=== PATIENT | female | born 1940 | race Caucasian/White ===

== ENCOUNTER → 2017-01-15 | Outpatient (CLI) | payer MEDICARE ==
[2017-01-15 10:08] LABS: INR 3.1 (<1.1); Prothrombin Time 30.2 sec (9.0-12.0)
[2017-01-15 10:19] LABS: ALT 27 U/L (9-52); AST 16 U/L (14-36); Alkaline Phosphatase 88 U/L (38-126); Anion Gap 13 mmol/L; Blood Urea Nitrogen 22 mg/dL (7-17); Calcium 9.4 mg/dL (8.4-10.2); Carbon Dioxide 24 mmol/L (22-30); Chloride 106 mmol/L (98-107); Cholesterol 165 mg/dL (<200); Glucose 141 mg/dL (74-99); HDL Cholesterol 48 mg/dL (40-60); Non-African American GFR(MDRD) 51 (>60 ml/min/1.73 sqM); Potassium 4.9 mmol/L (3.5-5.1); Sodium 143 mmol/L (137-145); Total Bilirubin 0.8 mg/dL (0.2-1.3); Triglycerides 119 mg/dL (<150)
== END ==
LOC: LABWHC1 08:37
PROVIDERS: ATTEND Family Medicine
DX: E78.5 Hyperlipidemia, unspecified (principal); I10 Essential (primary) hypertension; E03.9 Hypothyroidism, unspecified; E11.9 Type 2 diabetes mellitus without complications
CPT/HCPCS: 36415; 80053; 80061; 83036; 84439; 84443; 85610

== ENCOUNTER → 2017-06-25 | Outpatient (CLI) | payer MEDICARE | END | disposition home or self-care (01) | LOC: MMGSC 12:17 | PROVIDERS: ATTEND Family Medicine | DX: N39.0 Urinary tract infection, site not specified (principal) | CPT/HCPCS: 87077; 87086; 87186 ==

== ENCOUNTER → 2017-07-16 | Outpatient (CLI) | payer MEDICARE ==
--- NOTE | 2017-07-18 09:02 | MM ---
Reason for exam: screening (asymptomatic). Last mammogram was performed 1 year and 2 months ago. History: Patient is postmenopausal. Physical Findings: A clinical breast exam by your physician is recommended on an annual basis and results should be correlated with mammographic findings. MG 3D Screening Mammo W/Cad Bilateral CC and MLO view(s) were taken. Prior study comparison: May 01, 2016, bilateral MG screening mammo w CAD. October 25, 2014, bilateral MG screening mammo w CAD. The breast tissue is almost entirely fat. No significant changes when compared with prior studies. ASSESSMENT: Negative, BI-RAD 1 RECOMMENDATION: Routine screening mammogram of both breasts in 1 year.
== END | disposition home or self-care (01) ==
LOC: RADMAMWWP 14:29
PROVIDERS: ATTEND Family Medicine
DX: Z12.31 Encounter for screening mammogram for malignant neoplasm of breast (principal)
CPT/HCPCS: 77063; G0202

== ENCOUNTER → 2017-10-31 | Outpatient (CLI) | payer MEDICARE | END | disposition home or self-care (01) | LOC: MMGSC 09:44 | PROVIDERS: ATTEND Family Medicine | DX: R31.9 Hematuria, unspecified (principal) | CPT/HCPCS: 87086 ==

== ENCOUNTER → 2018-01-14 | Outpatient (CLI) | payer MEDICARE ==
[2018-01-14 10:23] LABS: HCT 35.9 % (34.0-46.0); HGB 12.6 gm/dL (11.4-16.0); MCH 31.9 pg (25.0-35.0); MCHC 35.2 g/dL (31.0-37.0); MCV 90.7 fL (80.0-100.0); Mean Platelet Volume 6.6; Platelet Count 238 k/uL (150-450); RBC 3.95 m/uL (3.80-5.40); RDW 12.9 % (11.5-15.5)
[2018-01-14 10:30] LABS: Calcium 9.3 mg/dL (8.4-10.2); Potassium 4.9 mmol/L (3.5-5.1); Total Bilirubin 0.5 mg/dL (0.2-1.3); Total Protein 6.6 g/dL (6.3-8.2)
[2018-01-14 10:45] LABS: T4, Free (Free Thyroxine) 1.04 ng/dL (0.78-2.19)
[2018-01-14 19:43] LABS: Hemoglobin A1C 6.6 % (4.0-6.0)
== END | disposition home or self-care (01) ==
LOC: LABWHC1 09:09
PROVIDERS: ATTEND Family Medicine
DX: Z00.00 Encounter for general adult medical examination without abnormal findings (principal); E11.9 Type 2 diabetes mellitus without complications; R79.89 Other specified abnormal findings of blood chemistry
CPT/HCPCS: 36415; 80053; 80061; 83036; 84439; 84443; 85027

== ENCOUNTER → 2018-08-08 | Outpatient (CLI) | payer MEDICARE ==
[2018-08-08 12:34] LABS: Albumin 3.7 g/dL (3.5-5.0); Calcium 9.1 mg/dL (8.4-10.2); Potassium 4.8 mmol/L (3.5-5.1); Total Bilirubin 0.5 mg/dL (0.2-1.3); Total Protein 6.5 g/dL (6.3-8.2)
[2018-08-08 12:50] LABS: T4, Free (Free Thyroxine) 0.89 ng/dL (0.78-2.19)
[2018-08-08 18:37] LABS: Hemoglobin A1C 6.1 % (4.0-6.0)
== END ==
LOC: LABWHC1 08:24
PROVIDERS: ATTEND Family Medicine
DX: I10 Essential (primary) hypertension (principal); E11.9 Type 2 diabetes mellitus without complications; Z86.718 Personal history of other venous thrombosis and embolism
CPT/HCPCS: 36415; 80053; 80061; 82043; 82570; 83036; 84439; 84443

== ENCOUNTER → 2018-12-11 | Outpatient (CLI) | payer MEDICARE ==
--- NOTE | 2018-12-11 12:07 | XR ---
EXAMINATION TYPE: XR KUB DATE OF EXAM: 12/11/2018 HISTORY: Pain Comparison: None.Single KUB is submitted for interpretation. Findings: Right renal calculi: None Visualized. Right ureteral calculi: None Visualized. Left renal calculi: None Visualized. Left ureteral calculi: None Visualized. Pelvic calcifications: None Visualized. Bowel gas pattern is unremarkable. No free air. No mass effects. IMPRESSION: 1. No calculi noted.
== END | disposition home or self-care (01) ==
LOC: RADXRMAIN 11:14
PROVIDERS: ATTEND Urology
DX: N20.0 Calculus of kidney (principal)
CPT/HCPCS: 74018

== ENCOUNTER → 2019-03-05 | Outpatient (CLI) | payer MEDICARE ==
[2019-03-05 16:28] LABS: Albumin 4.3 g/dL (3.80-4.90); Albumin/Globulin Ratio 2.53 (1.60-3.17); Anion Gap 9.7 mmol/L (4.00-12.00); Calcium 9.2 mg/dL (8.7-10.3); Carbon Dioxide 25.3 mmol/L (21.6-31.8); Globulin 1.7 g/dL (1.6-3.3); LDL Cholesterol,Calculated 96.2 mg/dL (0.0-131.0); Potassium 4.8 mmol/L (3.5-5.5); Total Bilirubin 0.5 mg/dL (0.2-1.2); VLDL Calculation 26.8 mg/dL (5.00-40.00)
[2019-03-05 18:43] LABS: Hemoglobin A1C 6.3 % (4.0-6.0)
== END | disposition home or self-care (01) ==
LOC: LABWHC1 08:37
PROVIDERS: ATTEND Family Medicine
DX: E03.9 Hypothyroidism, unspecified (principal); I10 Essential (primary) hypertension; E78.00 Pure hypercholesterolemia, unspecified; E11.9 Type 2 diabetes mellitus without complications
CPT/HCPCS: 36415; 80053; 80061; 83036; 84439; 84443

== ENCOUNTER → 2019-09-24 | Outpatient (CLI) | payer MEDICARE ==
[2019-09-24 11:03] LABS: T4, Free (Free Thyroxine) 1.1 ng/dL (0.80-1.80)
[2019-09-24 11:42] LABS: African American GFR (CKD) 56.1 (60.0-200.0); Albumin 4.2 g/dL (3.80-4.90); Albumin/Globulin Ratio 2.21 (1.60-3.17); BUN/Creat Ratio 26.36 Ratio (12.00-20.00); Calcium 9.2 mg/dL (8.7-10.3); Chol/HDL Ratio 3.25; Globulin 1.9 g/dL (1.6-3.3); LDL Cholesterol,Calculated 74.4 mg/dL (0.0-131.0); Non-African American GFR(CKD) 48.4 (60.0-200.0); Potassium 4.5 mmol/L (3.5-5.5); Total Bilirubin 0.6 mg/dL (0.3-1.2); Total Protein 6.1 g/dL (6.2-8.2); VLDL Calculation 24.6 mg/dL (5.00-40.00)
== END | disposition home or self-care (01) ==
LOC: LABWHC1 06:44
PROVIDERS: ATTEND Family Medicine
DX: E11.9 Type 2 diabetes mellitus without complications (principal); E78.00 Pure hypercholesterolemia, unspecified; E03.9 Hypothyroidism, unspecified
CPT/HCPCS: 36415; 80053; 80061; 82043; 82570; 83036; 84439; 84443

== ENCOUNTER → 2019-11-27 | Outpatient (CLI) | payer MEDICARE ==
--- NOTE | 2019-11-30 09:37 | MM ---
Reason for exam: screening (asymptomatic). Last mammogram was performed 2 years and 4 months ago. History: Patient is postmenopausal. Physical Findings: A clinical breast exam by your physician is recommended on an annual basis and results should be correlated with mammographic findings. MG 3D Screening Mammo W/Cad Bilateral CC and MLO view(s) were taken. Prior study comparison: July 16, 2017, bilateral MG 3d screening mammo w/cad. May 01, 2016, bilateral MG screening mammo w CAD. There are scattered fibroglandular densities. No suspicious abnormality. No significant changes when compared with prior studies. ASSESSMENT: Negative, BI-RAD 1 RECOMMENDATION: Routine screening mammogram of both breasts in 1 year.
== END | disposition home or self-care (01) ==
LOC: RADMAMWWP 11:50
PROVIDERS: ATTEND Family Medicine
DX: Z12.31 Encounter for screening mammogram for malignant neoplasm of breast (principal)
CPT/HCPCS: 77063; 77067

== ENCOUNTER → 2020-05-10 | Outpatient (CLI) | payer MEDICARE ==
--- NOTE | 2020-05-10 08:54 | US ---
EXAMINATION TYPE: US kidneys/renal and bladder DATE OF EXAM: 05/10/2020 COMPARISON: CT 2012, US 2011 CLINICAL HISTORY: N18.3 Chronic Kidney Disease Stage 3. CKD stage III EXAM MEASUREMENTS: Right Kidney: 10.9 x 5.4 x 4.9 cm Left Kidney: 12.3 x 4.5 x 4.4 cm Difficult and limited study due to patient body habitus Right Kidney: cortical thinning, irregular contour, no hydronephrosis or masses seen Left Kidney: cortical thinning, irregular contour, 2.1cm anechoic area mid pole that appears to exten d into calyx, possible mild hydronephrosis Bladder: not fully distended, appears wnl as seen Bilateral Jets seen: no IMPRESSION: 1. Diffuse cortical thinning is evident compatible with some chronic renal failure. 2. Focal anechoic area inferior pole left kidney. Peripelvic cyst, some focal hydronephrosis or hetal ceal dilatation could be considered.
[2020-05-10 10:07] LABS: Appearance,Urine Clear (Clear); Bilirubin,Urine Negative (Negative); Blood,Urine Negative (Negative); Color,Urine Light Yellow; Glucose,Urine (UA) Negative (Negative); Ketones,Urine Negative (Negative); Leukocyte Esterase,Urine Negative (Negative); Nitrite,Urine Negative (Negative); Protein,Urine Negative (Negative); Specific Gravity,Urine 1.003 (1.001-1.035); Urobilinogen,Urine <2.0 mg/dL (<2.0)
[2020-05-10 10:34] LABS: HCT 36.8 % (34.0-46.0); HGB 11.7 gm/dL (11.4-16.0); MCH 30.1 pg (25.0-35.0); MCHC 31.8 g/dL (31.0-37.0); MCV 94.9 fL (80.0-100.0); Mean Platelet Volume 7.4; Platelet Count 203 k/uL (150-450); RBC 3.88 m/uL (3.80-5.40); RDW 13.5 % (11.5-15.5); WBC 4.1 k/uL (3.8-10.6)
[2020-05-10 11:37] LABS: Albumin 3.6 g/dL (3.5-5.0); Calcium 8.8 mg/dL (8.4-10.2); Magnesium 1.8 mg/dL (1.6-2.3); Phosphorus 3.5 mg/dL (2.5-4.5); Potassium 4.9 mmol/L (3.5-5.1); Total Bilirubin 0.5 mg/dL (0.2-1.3); Total Protein 6.1 g/dL (6.3-8.2); Uric Acid 4.6 mg/dL (3.7-7.4)
[2020-05-10 16:59] LABS: % Iron Saturation 36.4 (12.00-45.00)
[2020-05-10 17:19] LABS: Ferritin 540.9 ng/mL (10.0-291.0)
[2020-05-10 18:12] LABS: Microalbumin Creatinine Ratio <30 mg/g Creat (0-30); Urine Creatinine 12.6 mg/dL
== END | disposition home or self-care (01) ==
LOC: RADUSWWP 08:06
PROVIDERS: ATTEND Internal Medicine
DX: N28.1 Cyst of kidney, acquired (principal); N18.3 Chronic kidney disease, stage 3 (moderate); D63.1 Anemia in chronic kidney disease; N39.0 Urinary tract infection, site not specified; R80.9 Proteinuria, unspecified; N25.81 Secondary hyperparathyroidism of renal origin; E55.9 Vitamin D deficiency, unspecified; M10.9 Gout, unspecified
CPT/HCPCS: 76770; 80053; 81003; 82043; 82306; 82570; 82728; 83540; 83550; 83735; 83970; 84100; 84550; 85027

== ENCOUNTER → 2020-06-14 | Outpatient (CLI) | payer MEDICARE ==
--- NOTE | 2020-06-15 07:17 | CT ---
EXAMINATION TYPE: CT urogram wo/w con DATE OF EXAM: 06/14/2020 COMPARISON: 06/07/2012 INDICATION: Lt flank pain, hydronephrosis DLP: 3230 mGycm, Automated exposure control for dose reduction was used. CONTRAST: 80 mL of Isovue 300. Study performed without Oral Contrast TECHNIQUE: Axial images were obtained from above the diaphragm to the pubic rami in the axial plane a t 5 mm thick sections. Reconstructed images are reviewed on the computer in the coronal plane. FINDINGS: Limited CT sections are obtained the lung bases. The lung bases are clear. Coronary artery calcific ation is noted. CT ABDOMEN: Liver: Normal Spleen: Normal Pancreas: Normal Adrenal glands: The adrenal glands are normal. Gallbladder: Surgically absent Kidneys: No masses are evident. Some cortical thinning appears to be present. No hydronephrosis is pr esent. No cysts are present. Delayed images were obtained through the kidneys, which remain unrema rkable. Three-D reconstructed images performed on a separate computer by the technologist are reviewe d. Renal calyces and infundibulum and renal pelves appear normal. There is delayed contrast into the right ureter which is unopacified during this exam. Noncontrast images of the right ureter appear no rmal. Left ureter appears normal. Aorta: Vascular calcification is within the aorta. Inferior vena cava: There is a filter within the inferior vena cava. CT PELVIS: Loops of bowel within the abdomen and pelvis are normal. Study is performed without oral contrast limiting bowel evaluation. Scattered diverticuli within the sigmoid colon. Appendix: Not identified. No dilated tubular structure inflammatory changes are evident. Urinary bladder: Normal. Genitourinary structures: Uterus is absent. Adnexal regions are clear. Osseous structures: No suspicious lytic or sclerotic lesions. IMPRESSIONS: 1. No acute suspicious changes CT urogram. Exam has limitation with nondrainage of contrast into the right ureter during the exam. Contrast excretion through the kidneys however is symmetrical. 2. Diverticulosis without acute diverticulitis.
== END | disposition home or self-care (01) ==
LOC: RADCTMAIN 17:10
PROVIDERS: ATTEND Urology
DX: K57.90 Diverticulosis of intestine, part unspecified, without perforation or abscess without bleeding (principal); N13.30 Unspecified hydronephrosis
CPT/HCPCS: 82565; 84520; 74178; 36415; 74400; Q9967

== ENCOUNTER → 2020-06-21 | Outpatient (CLI) | payer MEDICARE ==
[2020-06-21 16:29] LABS: INR 3.57 (0.90-1.11); Prothrombin Time 36.4 sec (9.9-11.9)
[2020-06-21 18:16] LABS: African American GFR (CKD) 55.7 (60.0-200.0); Albumin 4.2 g/dL (3.80-4.90); BUN/Creat Ratio 23.64 Ratio (12.00-20.00); Calcium 9.1 mg/dL (8.7-10.3); Chol/HDL Ratio 3.89; Globulin 2.1 g/dL (1.6-3.3); LDL Cholesterol,Calculated 96.8 mg/dL (0.0-131.0); Potassium 4.8 mmol/L (3.5-5.5); Total Bilirubin 0.6 mg/dL (0.2-1.2); Total Protein 6.3 g/dL (6.2-8.2); VLDL Calculation 30.2 mg/dL (5.00-40.00)
[2020-06-21 20:21] LABS: Hemoglobin A1C 5.8 % (4.0-6.0)
[2020-06-22 01:50] LABS: Urine Creatinine 91.3 mg/dL
== END | disposition home or self-care (01) ==
LOC: LABWHC1 09:01
PROVIDERS: ATTEND Family Medicine
DX: E78.5 Hyperlipidemia, unspecified (principal); E11.9 Type 2 diabetes mellitus without complications; Z79.01 Long term (current) use of anticoagulants
CPT/HCPCS: 36415; 80053; 80061; 82043; 82570; 83036; 85610

== ENCOUNTER → 2020-10-06 | Outpatient (CLI) | payer MEDICARE ==
[2020-10-06 13:34] LABS: Basophils % (A) 0 %; Eosinophils # (A) 0.1 k/uL (0-0.7); Eosinophils % (A) 2 %; HCT 31.3 % (34.0-46.0); HGB 10.4 gm/dL (11.4-16.0); Lymphocytes % (A) 19 %; MCH 30.9 pg (25.0-35.0); MCHC 33.1 g/dL (31.0-37.0); MCV 93.2 fL (80.0-100.0); Mean Platelet Volume 7.1; Monocytes # (A) 0.3 k/uL (0-1.0); Monocytes % (A) 7 %; Neutrophils # (A) 3.7 k/uL (1.3-7.7); Neutrophils % (A) 70 %; Platelet Count 236 k/uL (150-450); RBC 3.36 m/uL (3.80-5.40); WBC 5.3 k/uL (3.8-10.6)
[2020-10-06 19:49] LABS: INR 4.74 (0.90-1.11); Prothrombin Time 45.6 sec (9.9-11.9)
== END | disposition home or self-care (01) ==
LOC: LABWHC1 12:20
PROVIDERS: ATTEND Family Medicine
DX: R31.9 Hematuria, unspecified (principal); K92.1 Melena
CPT/HCPCS: 36415; 85025; 85610

== ENCOUNTER → 2020-10-10 | Outpatient (CLI) | payer MEDICARE ==
[2020-10-10 11:23] LABS: Basophils % (A) 0 %; Eosinophils # (A) 0.2 k/uL (0-0.7); Eosinophils % (A) 3 %; HCT 30.9 % (34.0-46.0); HGB 10.4 gm/dL (11.4-16.0); Lymphocytes # (A) 1.1 k/uL (1.0-4.8); Lymphocytes % (A) 20 %; MCH 31.5 pg (25.0-35.0); MCHC 33.8 g/dL (31.0-37.0); MCV 93.2 fL (80.0-100.0); Mean Platelet Volume 7.2; Monocytes # (A) 0.4 k/uL (0-1.0); Monocytes % (A) 7 %; Neutrophils # (A) 3.5 k/uL (1.3-7.7); Neutrophils % (A) 68 %; Platelet Count 275 k/uL (150-450); RBC 3.31 m/uL (3.80-5.40); RDW 13.5 % (11.5-15.5); WBC 5.2 k/uL (3.8-10.6)
== END | disposition home or self-care (01) ==
LOC: LABWHC1 09:23
PROVIDERS: ATTEND Family Medicine
DX: R31.9 Hematuria, unspecified (principal); K92.1 Melena
CPT/HCPCS: 36415; 85025

== ENCOUNTER → 2020-10-14 | Outpatient (CLI) | payer MEDICARE ==
[2020-10-14 10:09] LABS: HCT 30.5 % (34.0-46.0); HGB 10.2 gm/dL (11.4-16.0); MCH 31.5 pg (25.0-35.0); MCHC 33.6 g/dL (31.0-37.0); MCV 93.9 fL (80.0-100.0); Mean Platelet Volume 7.2; Platelet Count 282 k/uL (150-450); RBC 3.25 m/uL (3.80-5.40); RDW 13.8 % (11.5-15.5); WBC 4.6 k/uL (3.8-10.6)
[2020-10-14 16:07] LABS: INR 1.87 (0.90-1.11); Prothrombin Time 19.3 sec (9.9-11.9)
== END | disposition home or self-care (01) ==
LOC: LABWHC1 09:29
PROVIDERS: ATTEND Family Medicine
DX: K92.1 Melena (principal); Z79.01 Long term (current) use of anticoagulants
CPT/HCPCS: 36415; 85027; 85610

== ENCOUNTER → 2020-11-02 | Outpatient (CLI) | payer MEDICARE ==
[2020-11-02 20:45] LABS: INR 4.92 (0.90-1.11); Prothrombin Time 47.2 sec (9.9-11.9)
== END | disposition home or self-care (01) ==
LOC: LABWHC1 12:52
PROVIDERS: ATTEND Family Medicine
DX: Z51.81 Encounter for therapeutic drug level monitoring (principal); Z79.01 Long term (current) use of anticoagulants
CPT/HCPCS: 36415; 85610

== ENCOUNTER → 2020-11-09 | Outpatient (CLI) | payer MEDICARE ==
[2020-11-09 18:29] LABS: INR 1.78 (0.90-1.11); Prothrombin Time 18.4 sec (9.9-11.9)
== END | disposition home or self-care (01) ==
LOC: LABWHC1 08:58
PROVIDERS: ATTEND Family Medicine
DX: Z51.81 Encounter for therapeutic drug level monitoring (principal); Z79.01 Long term (current) use of anticoagulants
CPT/HCPCS: 36415; 85610

== ENCOUNTER 2021-04-27 14:31 | Observation (INO) | payer MEDICARE ==
[2021-04-27] MEDS ORDERED: RX INFO: IV CONTRAST WAS GIVEN 1 EACH MISC MISCELLANE PRN (15:34)
[2021-04-27] MEDS ORDERED: ONDANSETRON 4 MG/2 ML VIAL IVP STA (15:34)
[2021-04-27] MEDS ORDERED: SODIUM CHLORIDE 0.9% 500 ML 500 ML IV STA (15:34)
[2021-04-27] MEDS ORDERED: MORPHINE SULFATE 4 MG/ML SYRINGE IVP STA (15:35)
--- NOTE | 2021-04-27 15:38 | ED ---
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 The patient states that she was in [place] this morning around 9 AM. She states that she was on a deck and she had a coffee in her hand. She went to step down off of the deck and missed her step and fell. States the deck was approximately 1 foot off the ground. She states that she landed onto her right side. She denies any head injury or loss of consciousness. She states that since that time she's had pain in the right side of her abdomen and right back area. She states that the pain is made worse with certain movements and breathing. She denies any hematuria or dysuria. She states that she has a little bit of nausea. No headache. No neck pain. She states she had no injuries in her extremities. She was able to ambulate afterwards however had some pain. Her family was able to drive her back home and she decided to come emergency department for evaluation. Patient otherwise denies any other points. - Related Data Home Medications Medication Instructions Recorded Confirmed ALPRAZolam [Xanax] 0.25 mg PO DAILY PRN 04/27/21 04/27/21 Acetaminophen Tab [Tylenol Tab] 500 mg PO Q6H PRN 04/27/21 04/27/21 Ascorbic Acid [Vitamin C] 1,000 mg PO DAILY 04/27/21 04/27/21 Atorvastatin Calcium [Lipitor] 10 mg PO HS 04/27/21 04/27/21 Cholecalciferol (Vitamin D3) 375 mcg PO DAILY 04/27/21 04/27/21 [Vitamin D3 (5000 Iu)] Insulin Glargine,Hum.rec.anlog 20 unit SQ DAILY 04/27/21 04/27/21 [Lantus Solostar] Insulin Glargine,Hum.rec.anlog 55 unit SQ HS 04/27/21 04/27/21 [Lantus Solostar] Levothyroxine Sodium [Synthroid] 75 mcg PO DAILY 04/27/21 04/27/21 Losartan Potassium 100 mg PO DAILY 04/27/21 04/27/21 Meclizine [Antivert] 25 mg PO TID PRN 04/27/21 04/27/21 Sertraline [Zoloft] 50 mg PO DAILY 04/27/21 04/27/21 Warfarin Sodium [Jantoven] 2.5 mg PO THFRSA@209904/27/21 04/27/21 Warfarin Sodium [Jantoven] 5 mg PO SUMOTUWE@209904/27/21 04/27/21 Allergies Allergy/AdvReac Type Severity Reaction Status Date / Time codeine Allergy Hallucinati Verified 04/27/21 17:18 ons Review of Systems ROS Statement: Those systems with pertinent positive or pertinent negative responses have been documented in the HPI. ROS Other: All systems not noted in ROS Statement are negative. Past Medical History Past Medical History: Hyperlipidemia Additional Past Medical History / Comment(s): factor 5 History of Any Multi-Drug Resistant Organisms: None Reported Past Surgical History: Back Surgery, Orthopedic Surgery Additional Past Surgical History / Comment(s): sadaf shulder ,sadaf knee, femur Past Psychological History: No Psychological Hx Reported Smoking Status: Never smoker Past Alcohol Use History: None Reported Past Drug Use History: None Reported General Exam - General Exam Comments Initial Comments: Constitutional: Awake alert uncomfortable Head: Normocephalic atraumatic Eyes: no conjunctival injection No scleral icterus EOMI, pupils are 4 mm and reactive bilaterally Neck: No JVD Supple, no midline tenderness Heart: Regular rate rhythm normal S1-S2 no murmurs Lungs: Clear to auscultation bilaterally No wheezing No rales, no tenderness to palpation the chest wall Abdomen: Soft nondistended and has some tenderness in the right upper quadrant and right flank area, no ecchymosis Extremities: Non edematous DP pulses intact Radial pulses intact, the patient is no tenderness in the extremities. She has no tenderness in the T and L-spine. She does have some right-sided posterior rib discomfort. No overlying ecchymosis Neuro: A&Ox3 No focal neurologic deficits Psych: Appropriate mood and affect Limitations: no limitations Course Vital Signs 04/27/21 15:19 Temperature 97.6 F Pulse Rate 75 Respiratory 22 Rate Blood Pressure 138/63 O2 Sat by Pulse 99 Oximetry - Reevaluation(s) Reevaluation #1: EKG is showing normal sinus rhythm with a rate of 72. No abnormal ST segment changes or T-wave inversions. QTC is 435. Other intervals normal. No ectopy. 04/27/21 16:56 Medical Decision Making - Medical Decision Making Is a 72-year-old female presents emergency room after a fall this morning. The patient had quite a bit of pain on the right flank region. The patient was evaluated according to ATLS. She had CT scans of the head neck chest abdomen pelvis. She was noted to have for right-sided rib fractures. The patient was given a morphine on arrival with improvement in her symptoms however was having some significant amount of pain with inspiration. Due to the number of rib fractures, patient's age I do feel that is prudent to monitor the patient and the hospital setting to get her pain under control so that she does not develop any pulmonary issues such as pneumonia. I spoke with Dr. Oconnell who accepts the admission. - Lab Data Result diagrams: 04/27/21 17:13 04/27/21 16:10 Lab Results 04/27/21 04/27/21 04/27/21 Range/Units 15:47 16:10 16:10 WBC (3.8-10.6) k/uL RBC (3.80-5.40) m/uL Hgb (11.4-16.0) gm/dL Hct (34.0-46.0) % MCV (80.0-100.0) fL MCH (25.0-35.0) pg MCHC (31.0-37.0) g/dL RDW (11.5-15.5) % Plt Count (150-450) k/uL MPV Neutrophils % % Lymphocytes % % Monocytes % % Eosinophils % % Basophils % % Neutrophils # (1.3-7.7) k/uL Lymphocytes # (1.0-4.8) k/uL Monocytes # (0-1.0) k/uL Eosinophils # (0-0.7) k/uL Basophils # (0-0.2) k/uL PT 31.8 H (9.0-12.0) sec INR 3.3 H (<1.2) APTT 35.1 H (22.0-30.0) sec Sodium 138 (137-145) mmol/L Potassium 4.7 (3.5-5.1) mmol/L Chloride 107 (98-107) mmol/L Carbon Dioxide 22 (22-30) mmol/L Anion Gap 9 mmol/L BUN 32 H (7-17) mg/dL Creatinine 0.96 (0.52-1.04) mg/dL Est GFR (CKD-EPI)AfAm 66 (>60 ml/min/1.73 sqM) Est GFR (CKD-EPI)NonAf 57 (>60 ml/min/1.73 sqM) Glucose 146 H (74-99) mg/dL POC Glucose (mg/dL) 161 H (75-99) mg/dL POC Glu Mate Fourth ID Karen Castellano Calcium 9.0 (8.4-10.2) mg/dL Total Bilirubin 0.3 (0.2-1.3) mg/dL AST 41 H (14-36) U/L ALT 31 (4-34) U/L Alkaline Phosphatase 91 (38-126) U/L Troponin I (0.000-0.034) ng/mL Total Protein 6.1 L (6.3-8.2) g/dL Albumin 3.6 (3.5-5.0) g/dL Serum Alcohol <10 mg/dL Blood Type Blood Type Recheck Bld Type Recheck Status Antibody Screen Spec Expiration Date 04/27/21 04/27/21 04/27/21 Range/Units 16:10 16:15 17:13 WBC 9.3 (3.8-10.6) k/uL RBC 3.82 (3.80-5.40) m/uL Hgb 12.3 (11.4-16.0) gm/dL Hct 34.9 (34.0-46.0) % MCV 91.4 (80.0-100.0) fL MCH 32.1 (25.0-35.0) pg MCHC 35.2 (31.0-37.0) g/dL RDW 13.4 (11.5-15.5) % Plt Count 226 (150-450) k/uL MPV 7.7 Neutrophils % 87 % Lymphocytes % 7 % Monocytes % 5 % Eosinophils % 0 % Basophils % 0 % Neutrophils # 8.1 H (1.3-7.7) k/uL Lymphocytes # 0.6 L (1.0-4.8) k/uL Monocytes # 0.4 (0-1.0) k/uL Eosinophils # 0.0 (0-0.7) k/uL Basophils # 0.0 (0-0.2) k/uL PT (9.0-12.0) sec INR (<1.2) APTT (22.0-30.0) sec Sodium (137-145) mmol/L Potassium (3.5-5.1) mmol/L Chloride (98-107) mmol/L Carbon Dioxide (22-30) mmol/L Anion Gap mmol/L BUN (7-17) mg/dL Creatinine (0.52-1.04) mg/dL Est GFR (CKD-EPI)AfAm (>60 ml/min/1.73 sqM) Est GFR (CKD-EPI)NonAf (>60 ml/min/1.73 sqM) Glucose (74-99) mg/dL POC Glucose (mg/dL) (75-99) mg/dL POC Glu Mate Fourth ID Calcium (8.4-10.2) mg/dL Total Bilirubin (0.2-1.3) mg/dL AST (14-36) U/L ALT (4-34) U/L Alkaline Phosphatase (38-126) U/L Troponin I <0.012 (0.000-0.034) ng/mL Total Protein (6.3-8.2) g/dL Albumin (3.5-5.0) g/dL Serum Alcohol mg/dL Blood Type O Positive Blood Type Recheck O Pos Bld Type Recheck Status No Antibody Screen NEGATIVE Spec Expiration Date 04/30/20212309 Disposition Clinical Impression: Ribs, multiple fractures Disposition: ADMITTED IP TO THIS HOSP Condition: Stable Referrals: Amanda Montgomery MD [Primary Care Provider] - 1-2 days
--- NOTE | 2021-04-27 15:47 | XR ---
EXAMINATION TYPE: XR chest 1V portable DATE OF EXAM: 04/27/2021 COMPARISON: 05/19/2012 HISTORY: Trauma TECHNIQUE: Single frontal view of the chest is obtained. FINDINGS: There is haziness of the left hemidiaphragm which is likely due to underpenetration from body habitus . No definite large airspace disease. Cardiac silhouette is unchanged in size. Bilateral shoulder hardware is incompletely included. IMPRESSION: No acute process.
--- NOTE | 2021-04-27 15:48 | XR ---
EXAMINATION TYPE: XR pelvis AP view DATE OF EXAM: 04/27/2021 CLINICAL HISTORY: Trauma TECHNIQUE: A single AP view of the pelvis is obtained. COMPARISON: None. FINDINGS: There is an intramedullary nail in the right femur. Degenerative changes are seen in the bones. Vascu lar stent is present. IMPRESSION: There is no acute fracture or dislocation in the pelvis. Chronic changes, as described.
[2021-04-27 15:49] LABS: Glucose,Whole Blood 161 mg/dL (75-99)
--- NOTE | 2021-04-27 16:30 | CT ---
EXAMINATION TYPE: CT brain tyler beavers DATE OF EXAM: 04/27/2021 COMPARISON: HISTORY: Fall with injury today. CT DLP: 4590.1 mGycm Automated exposure control for dose reduction was used. TECHNIQUE: CT scan of the head and cervical spine are performed without contrast. FINDINGS: There is no acute intracranial hemorrhage, mass effect, or midline shift identified. The ventricles and sulci are within normal limits in size. There are cerebral vascular calcifications an d cortical atrophy. The globes are intact and the visualized sinuses are clear. Some artifact noted at these base of the cervical spine Cervical spine is visualized in its entirety from C1 through upper thoracic levels and demonstrates near anatomic alignment without evidence of acute fracture or dislocation. There is multilevel spondy losis. Loss of disc height is greatest at C5-6 and C6-7, C7-T1, there is multilevel foraminal encroac hment due to uncovertebral joint hypertrophy. Prevertebral soft tissue appears within normal limits. The C1-C2 articulation is unremarkable. There is a spinal curvature. IMPRESSION: 1. There is no acute fracture or dislocation evident in the cervical spine. 2. No acute intracranial hemorrhage, mass effect, or midline shift is seen.
--- NOTE | 2021-04-27 16:32 | CT ---
EXAMINATION TYPE: CT ChestAbdPelvis w con DATE OF EXAM: 04/27/2021 COMPARISON: Abdomen pelvis CT 06/14/2020 HISTORY: 80-year-old female pain after Fall and injury today. TECHNIQUE: Contiguous axial scanning of the chest, abdomen, and pelvis performed with IV Contrast, pa tient injected with 100 mL of Isovue 300. Delayed images through the kidneys were obtained. Coronal/s agittal reconstructions performed. CT DLP: 4590.1 mGycm Automated exposure control for dose reduction was used. FINDINGS: CHEST: Heart is borderline enlarged without pericardial effusion. Aorta normal caliber with conventional branching anatomy. No evidence for aortic dissection or medias tinal hematoma. No thoracic lymphadenopathy by CT size criteria. Patchy dependent atelectasis is noted. No consolidation, pleural effusion, or pneumothorax. Bilateral first shoulder arthroplasties. Nondisplaced and minimally offset fractures of the right lat eral fourth and fifth, seventh and eighth ribs. There is additional soft tissue thickening along the right anterolateral thoracoabdominal wall muscul ature, refer to axial image 55 through 60 suggesting muscular bruising and swelling. ABDOMEN: No discrete focal liver lesion underlying the abdominal wall muscle abnormality. Portal venous system is patent. No biliary ductal dilatation. Cholecystectomy clips. Adrenal glands, spleen, and pancreas show no gross abnormality. Lobulated bilateral kidneys with thin cortices, unchanged from prior. No dilated small bowel, free fluid, or free air. No mesenteric or retroperitoneal lymphadenopathy. Mild to moderate stool burden. Left-sided colonic diverticulosis, greatest in the sigmoid colon. No p ericolonic inflammatory change An IVC filter is present. PELVIS: Right common femoral vein vascular stent. Bladder urine distended. Uterus surgically absent. Right ov cari not seen. Left ovary is visualized. No abnormal fluid collection the pelvis or pelvic lymphadenop athy. BONES: Moderate degenerative change of the hips. Intramedullary nail within the visualized proximal right fe mur. Degenerative change of both SI joints. Post surgical change of L4-L5 posterior and interbody fus ion with a fixed grade 2 anterolisthesis. Vertebral body heights are preserved. IMPRESSION: 1. NONDISPLACED TO MINIMALLY DISPLACED FRACTURES OF THE RIGHT LATERAL FOURTH, FIFTH, SEVENTH, AND EIG HTH RIBS. SOME UNDERLYING ATELECTASIS ON THE RIGHT WITHOUT PNEUMOTHORAX OR PLEURAL EFFUSION. 2. ASYMMETRIC THICKENING OF THE RIGHT ANTEROLATERAL MUSCULAR WALL OF THE THORACOABDOMINAL JUNCTION EX TENDING DOWN INTO THE RIGHT UPPER QUADRANT. FINDINGS SUGGEST MUSCULAR BRUISING AND SWELLING.
[2021-04-27 16:45] LABS: ALT 31 U/L (4-34); AST 41 U/L (14-36); African American GFR (CKD) 66 (>60 ml/min/1.73 sqM); Albumin 3.6 g/dL (3.5-5.0); Alcohol <10 mg/dL; Alkaline Phosphatase 91 U/L (38-126); Anion Gap 9 mmol/L; Blood Urea Nitrogen 32 mg/dL (7-17); Carbon Dioxide 22 mmol/L (22-30); Chloride 107 mmol/L (98-107); Glucose 146 mg/dL (74-99); Non-African American GFR(CKD) 57 (>60 ml/min/1.73 sqM); Potassium 4.7 mmol/L (3.5-5.1); Sodium 138 mmol/L (137-145); Total Bilirubin 0.3 mg/dL (0.2-1.3); Total Protein 6.1 g/dL (6.3-8.2)
[2021-04-27 17:23] LABS: Basophils % (A) 0 %; Eosinophils % (A) 0 %; HCT 34.9 % (34.0-46.0); HGB 12.3 gm/dL (11.4-16.0); Lymphocytes # (A) 0.6 k/uL (1.0-4.8); Lymphocytes % (A) 7 %; MCH 32.1 pg (25.0-35.0); MCHC 35.2 g/dL (31.0-37.0); MCV 91.4 fL (80.0-100.0); Mean Platelet Volume 7.7; Monocytes # (A) 0.4 k/uL (0-1.0); Monocytes % (A) 5 %; Neutrophils # (A) 8.1 k/uL (1.3-7.7); Neutrophils % (A) 87 %; Platelet Count 226 k/uL (150-450); RBC 3.82 m/uL (3.80-5.40); RDW 13.4 % (11.5-15.5); WBC 9.3 k/uL (3.8-10.6)
[2021-04-27] MEDS ORDERED: NALOXONE 0.4 MG/ML 1 ML VIAL IV PRN ×2 (17:26→18:43)
[2021-04-27 17:30] LABS: INR 3.3 (<1.2); Partial Thromboplastin Time 35.1 sec (22.0-30.0); Prothrombin Time 31.8 sec (9.0-12.0)
--- NOTE | 2021-04-27 18:37 | P.GSHP ---
History of Present Illness H&P Date: 04/27/21 Patient is a 72-year-old female who is on blood thinners for factor V presents status post fall from a had a new after drinking a cup of coffee. She had slipped and broken multiple ribs at least 4. She reports moderate to severe pain is resolved. She also reports multiple orthopedic surgeries including of her bilateral shoulders reversal surgery. She lives alone. Her son is at bedside. As a result of her injuries, she is admitted. Recommend medicine consultation for medical management Recommend physical therapy for pre-existing history of multiple orthopedic surgeries including bilateral shoulder reversal Recommend pulmonary consultation Recommend pulmonary toilet with incentive spirometer. Patient's INR is 3.3 which is supratherapeutic and the prevention of DVTs. She is at elevated risk for ecchymosis bleeding and bruising which has also been described. Past Medical History Past Medical History: Hyperlipidemia Additional Past Medical History / Comment(s): factor 5 History of Any Multi-Drug Resistant Organisms: None Reported Past Surgical History: Back Surgery, Orthopedic Surgery Additional Past Surgical History / Comment(s): sadaf shulder ,sadaf knee, femur Past Psychological History: No Psychological Hx Reported Smoking Status: Never smoker Past Alcohol Use History: None Reported Past Drug Use History: None Reported Medications and Allergies Home Medications Medication Instructions Recorded Confirmed Type ALPRAZolam [Xanax] 0.25 mg PO DAILY PRN 04/27/21 04/27/21 History Acetaminophen Tab [Tylenol Tab] 500 mg PO Q6H PRN 04/27/21 04/27/21 History Ascorbic Acid [Vitamin C] 1,000 mg PO DAILY 04/27/21 04/27/21 History Atorvastatin Calcium [Lipitor] 10 mg PO HS 04/27/21 04/27/21 History Cholecalciferol (Vitamin D3) 375 mcg PO DAILY 04/27/21 04/27/21 History [Vitamin D3 (5000 Iu)] Insulin Glargine,Hum.rec.anlog 20 unit SQ DAILY 04/27/21 04/27/21 History [Lantus Solostar] Insulin Glargine,Hum.rec.anlog 55 unit SQ HS 04/27/21 04/27/21 History [Lantus Solostar] Levothyroxine Sodium [Synthroid] 75 mcg PO DAILY 04/27/21 04/27/21 History Losartan Potassium 100 mg PO DAILY 04/27/21 04/27/21 History Meclizine [Antivert] 25 mg PO TID PRN 04/27/21 04/27/21 History Sertraline [Zoloft] 50 mg PO DAILY 04/27/21 04/27/21 History Warfarin Sodium [Jantoven] 2.5 mg PO THFRSA@209904/27/21 04/27/21 History Warfarin Sodium [Jantoven] 5 mg PO SUMOTUWE@209904/27/21 04/27/21 History Allergies Allergy/AdvReac Type Severity Reaction Status Date / Time codeine Allergy Hallucinati Verified 04/27/21 17:18 ons Surgical - Exam Vital Signs Temp Pulse Resp BP Pulse Ox 97.6 F 75 22 138/63 99 04/27/21 15:19 04/27/21 15:19 04/27/21 15:19 04/27/21 15:19 04/27/21 15:19 Results - Labs 04/27/21 17:13 04/27/21 16:10 Abnormal Lab Results - Last 24 Hours (Table) 04/27/21 04/27/21 04/27/21 Range/Units 15:47 16:10 16:10 Neutrophils # (1.3-7.7) k/uL Lymphocytes # (1.0-4.8) k/uL PT 31.8 H (9.0-12.0) sec INR 3.3 H (<1.2) APTT 35.1 H (22.0-30.0) sec BUN 32 H (7-17) mg/dL Glucose 146 H (74-99) mg/dL POC Glucose (mg/dL) 161 H (75-99) mg/dL AST 41 H (14-36) U/L Total Protein 6.1 L (6.3-8.2) g/dL 04/27/21 Range/Units 17:13 Neutrophils # 8.1 H (1.3-7.7) k/uL Lymphocytes # 0.6 L (1.0-4.8) k/uL PT (9.0-12.0) sec INR (<1.2) APTT (22.0-30.0) sec BUN (7-17) mg/dL Glucose (74-99) mg/dL POC Glucose (mg/dL) (75-99) mg/dL AST (14-36) U/L Total Protein (6.3-8.2) g/dL Diabetes panel 04/27/21 Range/Units 16:10 Sodium 138 (137-145) mmol/L Potassium 4.7 (3.5-5.1) mmol/L Chloride 107 (98-107) mmol/L Carbon Dioxide 22 (22-30) mmol/L BUN 32 H (7-17) mg/dL Creatinine 0.96 (0.52-1.04) mg/dL Glucose 146 H (74-99) mg/dL Calcium 9.0 (8.4-10.2) mg/dL AST 41 H (14-36) U/L ALT 31 (4-34) U/L Alkaline Phosphatase 91 (38-126) U/L Total Protein 6.1 L (6.3-8.2) g/dL Albumin 3.6 (3.5-5.0) g/dL Calcium panel 04/27/21 Range/Units 16:10 Calcium 9.0 (8.4-10.2) mg/dL Albumin 3.6 (3.5-5.0) g/dL Pituitary panel 04/27/21 Range/Units 16:10 Sodium 138 (137-145) mmol/L Potassium 4.7 (3.5-5.1) mmol/L Chloride 107 (98-107) mmol/L Carbon Dioxide 22 (22-30) mmol/L BUN 32 H (7-17) mg/dL Creatinine 0.96 (0.52-1.04) mg/dL Glucose 146 H (74-99) mg/dL Calcium 9.0 (8.4-10.2) mg/dL Adrenal panel 04/27/21 Range/Units 16:10 Sodium 138 (137-145) mmol/L Potassium 4.7 (3.5-5.1) mmol/L Chloride 107 (98-107) mmol/L Carbon Dioxide 22 (22-30) mmol/L BUN 32 H (7-17) mg/dL Creatinine 0.96 (0.52-1.04) mg/dL Glucose 146 H (74-99) mg/dL Calcium 9.0 (8.4-10.2) mg/dL Total Bilirubin 0.3 (0.2-1.3) mg/dL AST 41 H (14-36) U/L ALT 31 (4-34) U/L Alkaline Phosphatase 91 (38-126) U/L Total Protein 6.1 L (6.3-8.2) g/dL Albumin 3.6 (3.5-5.0) g/dL
[2021-04-27] MEDS ORDERED: ZOLPIDEM 5 MG TAB PO PRN (18:39)
[2021-04-27] MEDS ORDERED: MAG HYDROX/AL HYDROX/SIMETH 30 ML CUP PO PRN (18:39)
[2021-04-27] MEDS ORDERED: fentaNYL PCA 500 MCG/50 ML BAG IV PRN (18:43)
[2021-04-27] MEDS: SODIUM CHLORIDE 0.9% 1,000 ML IV SCH (19:30)
[2021-04-27] MEDS: methocarbamoL 500 MG TAB PO SCH (20:21)
[2021-04-27 20:34] LABS: Appearance,Urine Cloudy (Clear); Bacteria,Urine Rare /hpf; Bilirubin,Urine Negative (Negative); Blood,Urine Large (Negative); Color,Urine Yellow; Glucose,Urine (UA) Negative (Negative); Ketones,Urine Negative (Negative); Leukocyte Esterase,Urine Negative (Negative); Mucus,Urine Rare /hpf; Nitrite,Urine Negative (Negative); Protein,Urine Negative (Negative); RBC,Urine >182 /hpf (0-5); Specific Gravity,Urine 1.031 (1.001-1.035); Squamous Epithelial Cell,Urine 2 /hpf (0-4); Urobilinogen,Urine <2.0 mg/dL (<2.0); WBC,Urine 3 /hpf (0-5)
[2021-04-27 20:39] LABS: Amphetamine Screen,Urine Not Detected (NotDetected); Barbiturate Screen,Urine Not Detected (NotDetected); Benzodiazepines Screen,Urine Not Detected (NotDetected); Cocaine Screen,Urine Not Detected (NotDetected); Methadone Screen, Urine Not Detected (NotDetected); Opiate Screen,Urine Detected (NotDetected); Oxycodone Screen, Urine Not Detected (NotDetected); Phencyclidine Screen,Urine Not Detected (NotDetected); Tricyclic Antidepressant,Urine Not Detected (NotDetected); Urn Cannabinoid Scrn Not Detected (NotDetected)
[2021-04-27 22:51] LABS: Glucose,Whole Blood 100 mg/dL (75-99)
[2021-04-27] MEDS: ACETAMINOPHEN TAB 500 MG TAB PO PRN (22:57)
[2021-04-28] MEDS: methocarbamoL 500 MG TAB PO SCH ×5 (01:43→22:00)
[2021-04-28 06:24] LABS: Basophils % (A) 0 %; Eosinophils # (A) 0.1 k/uL (0-0.7); Eosinophils % (A) 1 %; HCT 31.8 % (34.0-46.0); HGB 11.2 gm/dL (11.4-16.0); Lymphocytes # (A) 1.1 k/uL (1.0-4.8); Lymphocytes % (A) 22 %; MCH 32.8 pg (25.0-35.0); MCHC 35.1 g/dL (31.0-37.0); MCV 93.4 fL (80.0-100.0); Mean Platelet Volume 7.2; Monocytes # (A) 0.4 k/uL (0-1.0); Monocytes % (A) 8 %; Neutrophils # (A) 3.5 k/uL (1.3-7.7); Neutrophils % (A) 67 %; Platelet Count 189 k/uL (150-450); RDW 13.6 % (11.5-15.5); WBC 5.3 k/uL (3.8-10.6)
[2021-04-28] MEDS: SODIUM CHLORIDE 0.9% 1,000 ML IV SCH ×2 (07:13→20:17)
[2021-04-28 07:41] LABS: Glucose,Whole Blood 119 mg/dL (75-99)
[2021-04-28] MEDS: PANTOPRAZOLE 40 MG TABLET PO SCH (08:32)
[2021-04-28] MEDS: ACETAMINOPHEN TAB 500 MG TAB PO PRN (10:44)
--- NOTE | 2021-04-28 11:22 | P.CNPUL ---
History of Present Illness Consult date: 04/28/21 Requesting physician: Jody Anton Reason for consult: chest pain, abnormal CXR/CT, other Chief complaint: Multiple rib fractures on the right History of present illness: This is a 80-year-old white female patient of Dr. Montgomery with past medical history of diabetes mellitus type 2, factor V Leiden deficiency on Coumadin, history of DVT,, hypothyroidism, hyperlipidemia, patient is a lifetime nonsmoker. Her surgical history is positive for back surgery, bilateral shoulders and bilateral knee surgeries. She was in [place] visiting her brother, and she went outside on the [employer] with her cup of coffee yesterday on 04/27/2021. She went to step off the deck and missed her step and fell. She states the deck was approximately 1 foot off the ground. She landed onto her right side area she denied any head injury or loss of consciousness. Since that time she has had pain in the right side of her abdomen and right back area. Her pain is worse with certain movements and breathing. No headaches, no neck pain, patient had no other injuries in her extremities. She was able to ambulate afterwards even though having some pain. Patient's brother insisted the patient go to the hospital for evaluation however the patient insisted on returning to [place] and being seen in the emergency room in [place]. Patient had a computed tomography scan of the head, neck, chest, abdomen and pelvis. CT of the brain and C-spine showed no acute fracture dislocation the cervical spine, and no acute intracranial hemorrhage, mass effect or midline shift. Chest x-ray showed no acute process. Pelvis x-ray showed no acute fracture or dislocation in the pelvis. CT of the chest, abdomen and pelvis was reviewed, and there was no evidence of aortic dissection or mediastinal hematoma, no thoracic lymphadenopathy, no consolidation pleural effusion or pneumothorax, there was p atchy dependent atelectasis, there were nondisplaced and minimally offset fractures of the right lateral fourth, fifth, seventh and eighth ribs. There was also soft tissue thickening along the right anterolateral thoracoabdominal wall musculature suggesting muscular bruising and swelling. Patient was started on pain medications including fentanyl SLEEP LAB TECHNICIAN, Robaxin was added. She is given half a liter in IV fluids, and her maintenance IV fluids are infusing at a rate of 80 ML per hour with 0.9 normal saline, currently patient is sitting up in the recliner, she is experiencing moderate amount of discomfort in the right side of her chest which is exacerbated by any movement or deep breathing. However she states the pain is tolerable. Review of Systems All systems: negative Constitutional: Denies chills, Denies fever Eyes: denies blurred vision, denies pain Ears, nose, mouth and throat: Denies headache, Denies sore throat Cardiovascular: Reports chest pain, Denies shortness of breath Respiratory: Denies cough Gastrointestinal: Denies abdominal pain, Denies diarrhea, Denies nausea, Denies vomiting Genitourinary: Denies dysuria, Denies hematuria Musculoskeletal: Denies myalgias Integumentary: Denies pruritus, Denies rash Neurological: Denies numbness, Denies weakness Psychiatric: Denies anxiety, Denies depression Endocrine: Denies fatigue, Denies weight change Past Medical History Past Medical History: Diabetes Mellitus, Hyperlipidemia, Hypertension, Osteoarthritis (OA), Sleep Apnea/CPAP/BIPAP, Thyroid Disorder Additional Past Medical History / Comment(s): factor 5, hypothyroid, type II diabetes, kidney stones History of Any Multi-Drug Resistant Organisms: None Reported Past Surgical History: Back Surgery, Cholecystectomy, Hysterectomy, Orthopedic Surgery Additional Past Surgical History / Comment(s): sadaf shoulder ,sadaf knee, right femur, partial hysterectomy, kidney surgery Past Anesthesia/Blood Transfusion Reactions: No Reported Reaction Past Psychological History: No Psychological Hx Reported Smoking Status: Never smoker Past Alcohol Use History: None Reported Past Drug Use History: None Reported Medications and Allergies Home Medications Medication Instructions Recorded Confirmed Type ALPRAZolam [Xanax] 0.25 mg PO DAILY PRN 04/27/21 04/27/21 History Acetaminophen Tab [Tylenol Tab] 500 mg PO Q6H PRN 04/27/21 04/27/21 History Ascorbic Acid [Vitamin C] 1,000 mg PO DAILY 04/27/21 04/27/21 History Atorvastatin Calcium [Lipitor] 10 mg PO HS 04/27/21 04/27/21 History Cholecalciferol (Vitamin D3) 375 mcg PO DAILY 04/27/21 04/27/21 History [Vitamin D3 (5000 Iu)] Insulin Glargine,Hum.rec.anlog 20 unit SQ DAILY 04/27/21 04/27/21 History [Lantus Solostar] Insulin Glargine,Hum.rec.anlog 55 unit SQ HS 04/27/21 04/27/21 History [Lantus Solostar] Levothyroxine Sodium [Synthroid] 75 mcg PO DAILY 04/27/21 04/27/21 History Losartan Potassium 100 mg PO DAILY 04/27/21 04/27/21 History Meclizine [Antivert] 25 mg PO TID PRN 04/27/21 04/27/21 History Sertraline [Zoloft] 50 mg PO DAILY 04/27/21 04/27/21 History Warfarin Sodium [Jantoven] 2.5 mg PO THFRSA@209904/27/21 04/27/21 History Warfarin Sodium [Jantoven] 5 mg PO SUMOTUWE@209904/27/21 04/27/21 History Allergies Allergy/AdvReac Type Severity Reaction Status Date / Time codeine Allergy Hallucinati Verified 04/27/21 17:18 ons Physical Exam Vitals: Vital Signs Temp Pulse Pulse Resp BP BP Pulse Ox 04/28/21 05:00 97.7 F 60 16 121/52 97 04/27/21 22:43 98.2 F 74 16 162/76 94 L 04/27/21 22:16 67 16 139/67 97 04/27/21 15:19 97.6 F 75 22 138/63 99 Intake and Output 04/27/21 04/28/21 04/28/21 22:59 06:59 14:59 Intake Total 590 Balance 590 Intake: Oral 590 Other: Voiding Method Bedside Commode # Voids 1 Weight 106.594 kg GENERAL EXAM: Alert, extremely pleasant, 80-year-old white female, on room air with a pulse ox of 97%, sitting up in the recliner does admit to moderate amount of discomfort with deep breathing and coughing and moving in the right side of her chest related to multiple rib fractures HEAD: Normocephalic/atraumatic. EYES: Normal reaction of pupils, equal size. Conjunctiva pink, sclera white. NOSE: Clear with pink turbinates. THROAT: No erythema or exudates. NECK: No masses, no JVD, no thyroid enlargement, no adenopathy. CHEST: No chest wall deformity. Symmetrical expansion. LUNGS: Equal air entry with no crackles, wheeze, rhonchi or dullness. CVS: Regular rate and rhythm, normal S1 and S2, no gallops, no murmurs, no rubs ABDOMEN: Soft, nontender. No hepatosplenomegaly, normal bowel sounds, no guarding or rigidity. EXTREMITIES: No clubbing, no edema, no cyanosis, 2+ pulses and upper and lower extremities. MUSCULOSKELETAL: Muscle strength and tone normal. SPINE: No scoliosis or deformity SKIN: No rashes CENTRAL NERVOUS SYSTEM: Alert and oriented -3. No focal deficits, tone is normal in all 4 extremities. PSYCHIATRIC: Alert and oriented -3. Appropriate affect. Intact judgment and insight. Results - Laboratory Findings CBC and BMP: 04/28/21 05:29 04/27/21 16:10 PT/INR, D-dimer PT 31.8 sec (9.0-12.0) H 04/27/21 16:10 INR 3.3 (<1.2) H 04/27/21 16:10 Abnormal lab findings: Abnormal Labs 04/27/21 04/27/21 04/27/21 15:47 16:10 16:10 RBC Hgb Hct Neutrophils # Lymphocytes # PT 31.8 H INR 3.3 H APTT 35.1 H BUN 32 H Glucose 146 H POC Glucose (mg/dL) 161 H AST 41 H Total Protein 6.1 L Urine Appearance Urine Blood Urine RBC Urine Bacteria Urine Mucus Urine Opiates Screen 04/27/21 04/27/21 04/27/21 17:13 20:10 22:49 RBC Hgb Hct Neutrophils # 8.1 H Lymphocytes # 0.6 L PT INR APTT BUN Glucose POC Glucose (mg/dL) 100 H AST Total Protein Urine Appearance Cloudy H Urine Blood Large H Urine RBC >182 H Urine Bacteria Rare H Urine Mucus Rare H Urine Opiates Screen Detected H 04/28/21 04/28/21 05:29 07:39 RBC 3.40 L Hgb 11.2 L Hct 31.8 L Neutrophils # Lymphocytes # PT INR APTT BUN Glucose POC Glucose (mg/dL) 119 H AST Total Protein Urine Appearance Urine Blood Urine RBC Urine Bacteria Urine Mucus Urine Opiates Screen - Diagnostic Findings Chest x-ray: report reviewed, image reviewed CT scan - chest: report reviewed, image reviewed Additional studies: EKG reviewed, x-ray of the pelvis, CT of the head and cervical spine reviewed Assessment and Plan Plan: Assessment: #1. Multiple nondisplaced and minimally offset fractures of the right lateral fourth, fifth, seventh and eighth ribs secondary to a fall on 04/27/2021. CT chest was negative for pneumothorax, pleural effusion, or consolidation. Did show patchy dependent atelectasis. #2. Right chest pain related to the above #3. History of factor V Leiden deficiency, on Coumadin #4. Previous history of DVT #5. Hyperlipidemia #6. Hypothyroidism #7. Multiple orthopedic surgeries including bilateral shoulders, bilateral knee replacements, and back surgery #8. Lifetime nonsmoker #9. Diabetes mellitus type 2 Plan: Continue encouraging deep breathing and coughing Maintain pain control No evidence of pneumothorax Follow-up chest x-ray tomorrow If remains stable may consider for discharge home tomorrow from pulmonary perspective I performed a history & physical examination of the patient and discussed their management with my nurse practitioner, Madeline Ku. I reviewed the nurse practitioner's note and agree with the documented findings and plan of care. Lung sounds are positive for diminished breath sounds. The findings and the impression was discussed with the patient. I attest to the documentation by the nurse practitioner. Time with Patient: Greater than 30
[2021-04-28 12:29] LABS: Glucose,Whole Blood 147 mg/dL (75-99)
[2021-04-28] MEDS ORDERED: ALPRAZolam 0.25 MG TAB PO PRN (14:28)
[2021-04-28] MEDS ORDERED: MECLIZINE 25 MG TAB PO PRN (14:28)
--- NOTE | 2021-04-28 16:13 | P.CONS ---
History of Present Illness - Reason for Consult Consult date: 04/28/21 Medical management Requesting physician: Jody Anton - Chief Complaint Right-sided pain - History of Present Illness This is a very pleasant 80 female with very complex past medical history noted below who presented to the emergency room after sustaining a mechanical fall when she was visiting her brother in [place]. Patient was having a lot of pain in the right side area but did not want to go to the emergency room in [place] and decided to come all the way he is to [place] for evaluation. Patient said that she stepped off of the deck and fell on the right side. She denies any dizziness or lightheadedness. No loss of consciousness or head t rauma. She underwent imaging in the ER showing a right-sided rib fractures. She is currently admitted under Gen. surgery. I was asked to see her for medical management. Patient did not have any specific concerns or complaints at the time of my evaluation. Her pain was well controlled. Review of Systems Review of system: 14 points review of systems were obtained and were negative except to what were mentioned in the HPI. Past Medical History Past Medical History: Diabetes Mellitus, Hyperlipidemia, Hypertension, Osteoarthritis (OA), Sleep Apnea/CPAP/BIPAP, Thyroid Disorder Additional Past Medical History / Comment(s): factor 5, hypothyroid, type II diabetes, kidney stones History of Any Multi-Drug Resistant Organisms: None Reported Past Surgical History: Back Surgery, Cholecystectomy, Hysterectomy, Orthopedic Surgery Additional Past Surgical History / Comment(s): sadaf shoulder ,sadaf knee, right femur, partial hysterectomy, kidney surgery Past Anesthesia/Blood Transfusion Reactions: No Reported Reaction Past Psychological History: No Psychological Hx Reported Smoking Status: Never smoker Past Alcohol Use History: None Reported Past Drug Use History: None Reported Medications and Allergies Home Medications Medication Instructions Recorded Confirmed Type ALPRAZolam [Xanax] 0.25 mg PO DAILY PRN 04/27/21 04/27/21 History Acetaminophen Tab [Tylenol Tab] 500 mg PO Q6H PRN 04/27/21 04/27/21 History Ascorbic Acid [Vitamin C] 1,000 mg PO DAILY 04/27/21 04/27/21 History Atorvastatin Calcium [Lipitor] 10 mg PO HS 04/27/21 04/27/21 History Cholecalciferol (Vitamin D3) 375 mcg PO DAILY 04/27/21 04/27/21 History [Vitamin D3 (5000 Iu)] Insulin Glargine,Hum.rec.anlog 20 unit SQ DAILY 04/27/21 04/27/21 History [Lantus Solostar] Insulin Glargine,Hum.rec.anlog 55 unit SQ HS 04/27/21 04/27/21 History [Lantus Solostar] Levothyroxine Sodium [Synthroid] 75 mcg PO DAILY 04/27/21 04/27/21 History Losartan Potassium 100 mg PO DAILY 04/27/21 04/27/21 History Meclizine [Antivert] 25 mg PO TID PRN 04/27/21 04/27/21 History Sertraline [Zoloft] 50 mg PO DAILY 04/27/21 04/27/21 History Warfarin Sodium [Jantoven] 2.5 mg PO THFRSA@209904/27/21 04/27/21 History Warfarin Sodium [Jantoven] 5 mg PO SUMOTUWE@209904/27/21 04/27/21 History Allergies Allergy/AdvReac Type Severity Reaction Status Date / Time codeine Allergy Hallucinati Verified 04/27/21 17:18 ons Physical Exam Vitals: Vital Signs Temp Pulse Pulse Resp BP BP Pulse Ox 04/28/21 12:17 98.0 F 58 L 18 147/79 98 04/28/21 08:00 60 18 04/28/21 05:00 97.7 F 60 16 121/52 97 04/27/21 22:43 98.2 F 74 16 162/76 94 L 04/27/21 22:16 67 16 139/67 97 Intake and Output 04/28/21 04/28/21 04/28/21 06:59 14:59 22:59 Intake Total 590 Balance 590 Intake: Oral 590 Other: Voiding Method Bedside Commode Toilet # Voids 1 General: The patient is awake and alert, in no distress Eye: there is normal conjunctiva bilaterally. Neck: The neck is supple, there is no JVD. Cardiovascular: Normal S1-S2, no S3-S4, no murmurs. Respiratory: Lungs clear to auscultation bilaterally Gastrointestinal: Abdomen is soft, nontender Musculoskeletal: There is no pedal edema. Neurological:. Speech is normal. Skin: Skin is warm and dry Results CBC & Chem 7: 04/28/21 05:29 04/27/21 16:10 Labs: Abnormal Lab Results - Last 24 Hours (Table) 04/27/21 04/27/21 04/27/21 Range/Units 16:10 16:10 17:13 RBC (3.80-5.40) m/uL Hgb (11.4-16.0) gm/dL Hct (34.0-46.0) % Neutrophils # 8.1 H (1.3-7.7) k/uL Lymphocytes # 0.6 L (1.0-4.8) k/uL PT 31.8 H (9.0-12.0) sec INR 3.3 H (<1.2) APTT 35.1 H (22.0-30.0) sec BUN 32 H (7-17) mg/dL Glucose 146 H (74-99) mg/dL POC Glucose (mg/dL) (75-99) mg/dL AST 41 H (14-36) U/L Total Protein 6.1 L (6.3-8.2) g/dL Urine Appearance (Clear) Urine Blood (Negative) Urine RBC (0-5) /hpf Urine Bacteria (None) /hpf Urine Mucus (None) /hpf Urine Opiates Screen (NotDetected) 04/27/21 04/27/21 04/28/21 Range/Units 20:10 22:49 05:29 RBC 3.40 L (3.80-5.40) m/uL Hgb 11.2 L (11.4-16.0) gm/dL Hct 31.8 L (34.0-46.0) % Neutrophils # (1.3-7.7) k/uL Lymphocytes # (1.0-4.8) k/uL PT (9.0-12.0) sec INR (<1.2) APTT (22.0-30.0) sec BUN (7-17) mg/dL Glucose (74-99) mg/dL POC Glucose (mg/dL) 100 H (75-99) mg/dL AST (14-36) U/L Total Protein (6.3-8.2) g/dL Urine Appearance Cloudy H (Clear) Urine Blood Large H (Negative) Urine RBC >182 H (0-5) /hpf Urine Bacteria Rare H (None) /hpf Urine Mucus Rare H (None) /hpf Urine Opiates Screen Detected H (NotDetected) 04/28/21 04/28/21 Range/Units 07:39 12:21 RBC (3.80-5.40) m/uL Hgb (11.4-16.0) gm/dL Hct (34.0-46.0) % Neutrophils # (1.3-7.7) k/uL Lymphocytes # (1.0-4.8) k/uL PT (9.0-12.0) sec INR (<1.2) APTT (22.0-30.0) sec BUN (7-17) mg/dL Glucose (74-99) mg/dL POC Glucose (mg/dL) 119 H 147 H (75-99) mg/dL AST (14-36) U/L Total Protein (6.3-8.2) g/dL Urine Appearance (Clear) Urine Blood (Negative) Urine RBC (0-5) /hpf Urine Bacteria (None) /hpf Urine Mucus (None) /hpf Urine Opiates Screen (NotDetected) Assessment and Plan Assessment: 1. Fractures involving the right fourth-eighth ribs: Pain is relatively well- controlled. Continue Hines as needed. 2. Type 2 diabetes, continue sliding scale insulin. I would decrease her home dose of Lantus and monitor blood glucose closely while in the hospital 3. Factor V Leiden deficiency on anticoagulation with Coumadin. Computed tomography scan of the head and cervical spine in the ER with no acute findings. Continue Coumadin pharmacy to dose. 4. Chronic medical problems: Morbid obesity, hypothyroidism, history of DVT, hyperlipidemia Today, I reviewed her medication list and lab work results. Continue current regimen. PT/OT evaluation. Thank you very much for the consultation. I will continue to follow up on the patient closely with you.
[2021-04-28] MEDS: INSULIN ASPART (NovoLOG) 100 UNIT/ML VIAL SQ SCH ×2 (17:36→20:24)
[2021-04-28 17:41] LABS: Glucose,Whole Blood 131 mg/dL (75-99)
[2021-04-28] MEDS ORDERED: WARFARIN 2.5 MG TAB PO SCH (18:00)
[2021-04-28] MEDS ORDERED: WARFARIN 2.5 MG TAB PO ONE (18:30)
--- NOTE | 2021-04-28 19:34 | P.PN ---
Subjective Progress Note Date: 04/28/21 Clinically she is doing very well. Recommend possible discharge tomorrow pending discharge planning. Objective - Vital Signs Vital signs: Vital Signs Temp 98.0 F 04/28/21 12:17 Pulse 58 L 04/28/21 12:17 Resp 18 04/28/21 12:17 BP 147/79 04/28/21 12:17 Pulse Ox 98 04/28/21 12:17 Intake & Output 04/28/21 04/28/21 04/29/21 06:59 18:59 06:59 Intake Total 590 2160 Balance 590 2160 Weight 106.594 kg Intake: Intake, IV Titration 960 Amount Sodium Chloride 0.9% 1, 960 000 ml @ 80 mls/hr IV . [id number] [facility] Rx#:[id number] Oral 590 1200 Other: Voiding Method Bedside Commode Toilet # Voids 5 - Labs CBC & Chem 7: 04/28/21 05:29 04/27/21 16:10 Labs: Abnormal Lab Results - Last 24 Hours (Table) 04/27/21 04/27/21 04/28/21 Range/Units 20:10 22:49 05:29 RBC 3.40 L (3.80-5.40) m/uL Hgb 11.2 L (11.4-16.0) gm/dL Hct 31.8 L (34.0-46.0) % POC Glucose (mg/dL) 100 H (75-99) mg/dL Urine Appearance Cloudy H (Clear) Urine Blood Large H (Negative) Urine RBC >182 H (0-5) /hpf Urine Bacteria Rare H (None) /hpf Urine Mucus Rare H (None) /hpf Urine Opiates Screen Detected H (NotDetected) 04/28/21 04/28/21 04/28/21 Range/Units 07:39 12:21 17:21 RBC (3.80-5.40) m/uL Hgb (11.4-16.0) gm/dL Hct (34.0-46.0) % POC Glucose (mg/dL) 119 H 147 H 131 H (75-99) mg/dL Urine Appearance (Clear) Urine Blood (Negative) Urine RBC (0-5) /hpf Urine Bacteria (None) /hpf Urine Mucus (None) /hpf Urine Opiates Screen (NotDetected)
[2021-04-28 20:16] LABS: Glucose,Whole Blood 166 mg/dL (75-99)
[2021-04-28] MEDS: HYDROcodone/APAP 5-325MG 1 EACH TAB PO PRN (20:30)
[2021-04-28] MEDS ORDERED: INSULIN DETEMIR (LEVEMIR) 100 UNIT/ML SYR SQ SCH (21:00)
[2021-04-28] MEDS ORDERED: ATORVASTATIN 10 MG TAB PO SCH (21:00)
[2021-04-28] MEDS ORDERED: NON FORMULARY DRUG (Insulin Glargine,Hum.Rec.Anlog [Lantus Solostar] 100 UNIT/ML Insuln.Pe SQ SCH (21:00)
[2021-04-29 06:02] LABS: INR 2.6 (<1.2); Prothrombin Time 25.3 sec (9.0-12.0)
[2021-04-29] MEDS ORDERED: LEVOTHYROXINE 75 MCG TAB PO SCH (06:30)
[2021-04-29 06:44] LABS: Glucose,Whole Blood 102 mg/dL (75-99)
[2021-04-29] MEDS: methocarbamoL 500 MG TAB PO SCH ×2 (08:57→13:34)
[2021-04-29] MEDS: INSULIN ASPART (NovoLOG) 100 UNIT/ML VIAL SQ SCH ×2 (08:58→13:34)
[2021-04-29] MEDS: PANTOPRAZOLE 40 MG TABLET PO SCH (08:58)
[2021-04-29] MEDS: SODIUM CHLORIDE 0.9% 1,000 ML IV SCH (09:00)
[2021-04-29] MEDS ORDERED: INSULIN DETEMIR (LEVEMIR) 100 UNIT/ML SYR SQ SCH (09:00)
[2021-04-29] MEDS ORDERED: LOSARTAN 50 MG TAB PO SCH (09:00)
[2021-04-29] MEDS ORDERED: SERTRALINE 50 MG TAB PO SCH (09:00)
[2021-04-29] MEDS ORDERED: CHOLECALCIFEROL 25 MCG (1000 IU) TABLET PO SCH (09:00)
[2021-04-29] MEDS ORDERED: ASCORBIC ACID 500 MG TAB PO SCH (09:00)
--- NOTE | 2021-04-29 11:40 | P.PN ---
Subjective Progress Note Date: 04/29/21 Principal diagnosis: Fall, multiple right-sided rib fractures This is a 80-year-old white female patient of Dr. Montgomery with past medical history of diabetes mellitus type 2, factor V Leiden deficiency on Coumadin, history of DVT,, hypothyroidism, hyperlipidemia, patient is a lifetime nonsmoker. Her surgical history is positive for back surgery, bilateral shoulders and bilateral knee surgeries. She was in [place] visiting her brother, and she went outside on the [employer] with her cup of coffee yesterday on 04/27/2021. She went to step off the deck and missed her step and fell. She states the deck was approximately 1 foot off the ground. She landed onto her r ight side area she denied any head injury or loss of consciousness. Since that time she has had pain in the right side of her abdomen and right back area. Her pain is worse with certain movements and breathing. No headaches, no neck pain, patient had no other injuries in her extremities. She was able to ambulate afterwards even though having some pain. Patient's brother insisted the patient go to the hospital for evaluation however the patient insisted on returning to [place] and being seen in the emergency room in [place]. Patient had a computed tomography scan of the head, neck, chest, abdomen and pelvis. CT of the brain and C-spine showed no acute fracture dislocation the cervical spine, and no acute intracranial hemorrhage, mass effect or midline shift. Chest x-ray showed no acute process. Pelvis x-ray showed no acute fracture or dislocation in the pelvis. CT of the chest, abdomen and pelvis was reviewed, and there was no evidence of aortic dissection or mediastinal hematoma, no thoracic lymphadenopathy, no consolidation pleural effusion or pneumothorax, there was patchy dependent atelectasis, there were nondisplaced and minimally offset fractures of the right lateral fourth, fifth, seventh and eighth ribs. There was also soft tissue thickening along the right anterolateral thoracoabdominal wall musculature suggesting muscular bruising and swelling. Patient was started on pain medications including fentanyl ENGINEER OF SYSTEM DEVELOPMENT, Robaxin was added. She is given half a liter in IV fluids, and her maintenance IV fluids are infusing at a rate of 80 ML per hour with 0.9 normal saline, currently patient is sitting up in the recliner, she is experiencing moderate amount of discomfort in the right side of her chest which is exacerbated by any movement or deep breathing. However she states the pain is tolerable. The patient is seen today 04/29/2021 in follow-up on the regular medical floor. She is currently sitting up in a chair at the bedside. Awake and alert in no acute distress. She is still having significant right-sided chest discomfort mostly with movement. She has a binder in place now. Her pain is fairly well controlled. She is working well with the incentive spirometer. Maintaining O2 saturations in the 90s on room air. Afebrile. Hemodynamically stable. INR 2.6. Blood glucose 102. Objective - Vital Signs Vital signs: Vital Signs Temp 98.1 F 04/29/21 05:00 Pulse 53 L 04/29/21 05:00 Resp 16 04/29/21 05:00 BP 151/69 04/29/21 05:00 Pulse Ox 95 04/29/21 05:00 Intake & Output 04/28/21 04/29/21 04/29/21 18:59 06:59 18:59 Intake Total 2160 Balance 2160 Intake: Intake, IV Titration 960 Amount Sodium Chloride 0.9% 1, 960 000 ml @ 80 mls/hr IV . [id number] [facility] Rx#:[id number] Oral 1200 Other: Voiding Method Toilet Toilet Toilet # Voids 5 - Exam GENERAL EXAM: Alert, pleasant 80-year-old female patient, up in a chair at the bedside, on room air, comfortable in no apparent distress. HEAD: Normocephalic. EYES: Normal reaction of pupils, equal size. NOSE: Clear with pink turbinates. THROAT: No erythema or exudates. NECK: No masses, no JVD. CHEST: No chest wall deformity. Binder in place. LUNGS: Equal air entry with no crackles, wheeze, rhonchi or dullness. CVS: S1 and S2 normal with no audible murmur, regular rhythm. ABDOMEN: No hepatosplenomegaly, normal bowel sounds, no guarding or rigidity. SPINE: No scoliosis or deformity SKIN: No rashes CENTRAL NERVOUS SYSTEM: No focal deficits, tone is normal in all 4 extremities. EXTREMITIES: There is no peripheral edema. No clubbing, no cyanosis. Peripheral pulses are intact. - Labs CBC & Chem 7: 04/28/21 05:29 04/27/21 16:10 Labs: Abnormal Lab Results - Last 24 Hours (Table) 04/28/21 04/28/21 04/28/21 Range/Units 12:21 17:21 20:15 PT (9.0-12.0) sec INR (<1.2) POC Glucose (mg/dL) 147 H 131 H 166 H (75-99) mg/dL 04/29/21 04/29/21 Range/Units 04:47 06:42 PT 25.3 H (9.0-12.0) sec INR 2.6 H (<1.2) POC Glucose (mg/dL) 102 H (75-99) mg/dL Assessment and Plan Assessment: 1 Multiple nondisplaced and minimally offset fractures of the right lateral fourth, fifth, seventh and eighth ribs secondary to a fall on 04/27/2021. CT chest was negative for pneumothorax, pleural effusion, or consolidation. Did show patchy dependent atelectasis. 2 Right chest pain related to the above 3 History of factor V Leiden deficiency, on Coumadin 4 Previous history of DVT 5 Hyperlipidemia 6 Hypothyroidism 7 Multiple orthopedic surgeries including bilateral shoulders, bilateral knee replacements, and back surgery 8 Lifetime nonsmoker 9 Diabetes mellitus type 2 Plan: The patient was seen and evaluated by Dr. Phillip She is cleared for discharge from the pulmonary standpoint Educated regarding the importance of the incentive spirometer and cough and deep breathing exercises Follow-up with her PCP I, the cosigning physician, performed a history & physical examination of the patient. Lungs sounds are clear. Maintaining good O2 saturations in the 90s on room air. I discussed the assessment and plan of care with my nurse practitioner, Yaneli Sterling. I attest to the above note as dictated by her.
[2021-04-29 12:06] LABS: Glucose,Whole Blood 197 mg/dL (75-99)
[2021-04-29 13:07] LABS: Basophils % (A) 1 %; Eosinophils # (A) 0.2 k/uL (0-0.7); Eosinophils % (A) 4 %; HCT 33.4 % (34.0-46.0); HGB 11.4 gm/dL (11.4-16.0); Lymphocytes # (A) 1.2 k/uL (1.0-4.8); Lymphocytes % (A) 22 %; MCH 32.1 pg (25.0-35.0); MCHC 34.2 g/dL (31.0-37.0); MCV 93.8 fL (80.0-100.0); Monocytes # (A) 0.4 k/uL (0-1.0); Monocytes % (A) 7 %; Neutrophils # (A) 3.3 k/uL (1.3-7.7); Neutrophils % (A) 64 %; Platelet Count 193 k/uL (150-450); RBC 3.56 m/uL (3.80-5.40); RDW 13.7 % (11.5-15.5); WBC 5.2 k/uL (3.8-10.6)
--- NOTE | 2021-04-29 14:00 | P.DS ---
Providers Date of admission: 04/27/21 17:26 Expected date of discharge: 04/29/21 Attending physician: Jody Anton Consults: 04/27/21 18:37 Consult Physician Routine Consulting Provider: Eliceo Aguilar Consult Reason/Comments: Pulmonary contusion, rib fractures from fall Do you want consulting provider notified?: Yes, Notify in am 04/28/21 13:41 Consult Physician Routine Consulting Provider: Mary Harrell Consult Reason/Comments: Medical management Do you want consulting provider notified?: Already Contacted Primary care physician: Amanda Montgomery - Discharge Diagnosis(es) (1) Ribs, multiple fractures Status: Acute Hospital Course: She is status post fall with rib fractures. She is doing extremely well on Incentive spirometer over 2000 mL volume. Pain is controlled. Hgb is stable. Medical reconciliation performed with pain management of tylenol and lidocaine patches. Rib fracture management reviewed. Follow up with PCP in 1 week. Stable for discharge. Patient Condition at Discharge: Stable Plan - Discharge Summary Discharge Rx Participant: Yes New Discharge Prescriptions: New Lidocaine 5% Patch [Lidoderm 5% Patch] 1 patch TOPICAL DAILY #10 patch Acetaminophen Tab [Tylenol Tab] 1,000 mg PO Q6HR PRN #30 tablet PRN Reason: Pain Continue Levothyroxine Sodium [Synthroid] 75 mcg PO DAILY Insulin Glargine,Hum.rec.anlog [Lantus Solostar] 55 unit SQ HS Insulin Glargine,Hum.rec.anlog [Lantus Solostar] 20 unit SQ DAILY ALPRAZolam [Xanax] 0.25 mg PO DAILY PRN PRN Reason: Anxiety Cholecalciferol (Vitamin D3) [Vitamin D3 (5000 Iu)] 375 mcg PO DAILY Ascorbic Acid [Vitamin C] 1,000 mg PO DAILY Sertraline [Zoloft] 50 mg PO DAILY Losartan Potassium 100 mg PO DAILY Warfarin Sodium [Jantoven] 2.5 mg PO THFRSA@2100 Warfarin Sodium [Jantoven] 5 mg PO SUMOTUWE@2100 Atorvastatin Calcium [Lipitor] 10 mg PO HS Meclizine [Antivert] 25 mg PO TID PRN PRN Reason: Vertigo Acetaminophen Tab [Tylenol] 500 mg PO Q6H PRN PRN Reason: Pain Discharge Medication List ALPRAZolam [Xanax] 0.25 mg PO DAILY PRN 04/27/21 [History] Acetaminophen Tab [Tylenol] 500 mg PO Q6H PRN 04/27/21 [History] Ascorbic Acid [Vitamin C] 1,000 mg PO DAILY 04/27/21 [History] Atorvastatin Calcium [Lipitor] 10 mg PO HS 04/27/21 [History] Cholecalciferol (Vitamin D3) [Vitamin D3 (5000 Iu)] 375 mcg PO DAILY 04/27/21 [History] Insulin Glargine,Hum.rec.anlog [Lantus Solostar] 20 unit SQ DAILY 04/27/21 [History] Insulin Glargine,Hum.rec.anlog [Lantus Solostar] 55 unit SQ HS 04/27/21 [History] Levothyroxine Sodium [Synthroid] 75 mcg PO DAILY 04/27/21 [History] Losartan Potassium 100 mg PO DAILY 04/27/21 [History] Meclizine [Antivert] 25 mg PO TID PRN 04/27/21 [History] Sertraline [Zoloft] 50 mg PO DAILY 04/27/21 [History] Warfarin Sodium [Jantoven] 2.5 mg PO THFRSA@209904/27/21 [History] Warfarin Sodium [Jantoven] 5 mg PO SUMOTUWE@209904/27/21 [History] Acetaminophen Tab [Tylenol Tab] 1,000 mg PO Q6HR PRN #30 tablet 04/29/21 [Rx] Lidocaine 5% Patch [Lidoderm 5% Patch] 1 patch TOPICAL DAILY #10 patch 04/29/21 [Rx] Follow up Appointment(s)/Referral(s): Siri Phillip MD [STAFF PHYSICIAN] - 1 Week [facility], [NON-STAFF] - 1 Week Amanda Montgomery MD [Primary Care Provider] - 1-2 days Patient Instructions/Handouts: How to Use an Incentive Spirometer (DC), Rib Fracture (DC) Discharge Disposition: HOME SELF-CARE
--- NOTE | 2021-04-29 14:15 | P.PN ---
Subjective Progress Note Date: 04/29/21 Patient is doing well today. She was up in the chair when I saw her. Pain is well controlled with [place]. Objective - Vital Signs Vital signs: Vital Signs Temp 98.1 F 04/29/21 05:00 Pulse 53 L 04/29/21 05:00 Resp 16 04/29/21 05:00 BP 151/69 04/29/21 05:00 Pulse Ox 95 04/29/21 05:00 Intake & Output 04/28/21 04/29/21 04/29/21 18:59 06:59 18:59 Intake Total 2160 Balance 2160 Intake: Intake, IV Titration 960 Amount Sodium Chloride 0.9% 1, 960 000 ml @ 80 mls/hr IV . [id number] [facility] Rx#:[id number] Oral 1200 Other: Voiding Method Toilet Toilet Toilet # Voids 5 - Exam General: The patient is awake and alert, in no distress Eye: there is normal conjunctiva bilaterally. Neck: The neck is supple, there is no JVD. Cardiovascular: Normal S1-S2, no S3-S4, no murmurs. Respiratory: Lungs clear to auscultation bilaterally Gastrointestinal: Abdomen is soft, nontender Musculoskeletal: There is no pedal edema. Neurological:. Speech is normal. Skin: Skin is warm and dry - Labs CBC & Chem 7: 04/29/21 04:47 04/27/21 16:10 Labs: Abnormal Lab Results - Last 24 Hours (Table) 04/28/21 04/28/21 04/29/21 Range/Units 17:21 20:15 04:47 RBC (3.80-5.40) m/uL Hct (34.0-46.0) % PT 25.3 H (9.0-12.0) sec INR 2.6 H (<1.2) POC Glucose (mg/dL) 131 H 166 H (75-99) mg/dL 04/29/21 04/29/21 04/29/21 Range/Units 04:47 06:42 12:05 RBC 3.56 L (3.80-5.40) m/uL Hct 33.4 L (34.0-46.0) % PT (9.0-12.0) sec INR (<1.2) POC Glucose (mg/dL) 102 H 197 H (75-99) mg/dL Assessment and Plan Assessment: 1. Fractures involving the right fourth-eighth ribs: Pain is relatively well-controlled. Continue L[place] as needed. 2. Type 2 diabetes, continue sliding scale insulin. I decreased her home dose of Lantus and monitor blood glucose closely while in the hospital 3. Factor V Leiden deficiency on anticoagulation with Coumadin. Computed tomography scan of the head and cervical spine in the ER with no acute findings. Continue Coumadin pharmacy to dose. 4. Chronic medical problems: Morbid obesity, hypothyroidism, history of DVT, hyperlipidemia Today, I reviewed her medication list and lab work results. Continue current regimen. PT/OT evaluation. Discharge planning per primary team.
[2021-04-29 14:23] VITALS: BP 146/69; PULSE 61; RESP 18; TEMP 98.5
[2021-04-29] MEDS: HYDROcodone/APAP 5-325MG 1 EACH TAB PO PRN (15:37)
[2021-04-29] MEDS ORDERED: WARFARIN 2.5 MG TAB PO ONE (18:00)
[2021-04-30] MEDS ORDERED: WARFARIN 5 MG TAB PO SCH (18:00)
== END 2021-04-29 16:00 | disposition home or self-care (01) ==
LOC: EC 14:31 → INTOOBSV 17:26 → 5NMEDONC 17:26 → UNDODISIN 04-29 16:00
PROVIDERS: ADMIT Surgery Plastic and Reconstructive Surgery; ATTEND Surgery Plastic and Reconstructive Surgery
DX: S22.41XA Multiple fractures of ribs, right side, initial encounter for closed fracture (principal); S27.329A Contusion of lung, unspecified, initial encounter; J98.11 Atelectasis; E78.5 Hyperlipidemia, unspecified; E11.9 Type 2 diabetes mellitus without complications; D68.51 Activated protein C resistance; E03.9 Hypothyroidism, unspecified; E66.01 Morbid (severe) obesity due to excess calories; Z68.41 Body mass index [BMI] 40.0-44.9, adult; M19.90 Unspecified osteoarthritis, unspecified site; I10 Essential (primary) hypertension; G47.30 Sleep apnea, unspecified; R11.0 Nausea; Z20.822 Contact with and (suspected) exposure to COVID-19; Z86.718 Personal history of other venous thrombosis and embolism; Z87.442 Personal history of urinary calculi; W17.89XA Other fall from one level to another, initial encounter; Y93.01 Activity, walking, marching and hiking; Z96.653 Presence of artificial knee joint, bilateral; Z79.01 Long term (current) use of anticoagulants; Z79.899 Other long term (current) drug therapy; Z79.4 Long term (current) use of insulin; Z79.890 Hormone replacement therapy; Z88.5 Allergy status to narcotic agent; Z90.49 Acquired absence of other specified parts of digestive tract; Z90.711 Acquired absence of uterus with remaining cervical stump
CPT/HCPCS: 96361 ×2; 96374; 96375; 99285; 36415; 93005; 97116; 97162; 86900; 86901; 80053; 83605; 84484; 85025 ×3; 85610 ×2; 85730; 86850; 81001; 80306; 87635; 72170; 71045; 72125; 70450; 71260; 74177; G0378 ×3; G0480; J2270; J2405; Q9967; 80320

== ENCOUNTER → 2021-09-05 | Outpatient (CLI) | payer MEDICARE ==
[2021-09-05 15:35] LABS: Chol/HDL Ratio 3.14 Ratio; LDL Cholesterol,Calculated 99.6 mg/dL (0.0-131.0); T4, Free (Free Thyroxine) 1.11 ng/dL (0.800-1.800); VLDL Calculation 20.4 mg/dL (5.00-40.00)
== END | disposition home or self-care (01) ==
LOC: LABWHC1 08:13
PROVIDERS: ATTEND Family Medicine
DX: I26.99 Other pulmonary embolism without acute cor pulmonale (principal); I10 Essential (primary) hypertension; E11.9 Type 2 diabetes mellitus without complications; E78.2 Mixed hyperlipidemia; E03.9 Hypothyroidism, unspecified
CPT/HCPCS: 36415; 80061; 82043; 82570; 83036; 84439; 84443

== ENCOUNTER → 2022-10-16 | Outpatient (CLI) | payer MEDICARE ==
[2022-10-16 14:37] LABS: HCT 37.9 % (37.2-46.3); HGB 12.1 g/dL (12.0-15.0); MCH 30.9 pg (27.0-32.0); MCHC 31.9 g/dL (32.0-37.0); MCV 96.7 fL (80.0-97.0); Mean Platelet Volume 9.4 fL (9.5-12.2); NRBC Per 100 WBC 0 /100 WBCS (0.0-0.0); Platelet Count 227 X 10*3/uL (140-440); RBC 3.92 X 10*6/uL (4.10-5.20); RDW 13.2 % (11.5-14.5); WBC 4.19 X 10*3/uL (4.50-10.00)
[2022-10-16 15:32] LABS: ALT 16 U/L (8-44); AST 17 U/L (13-35); African American GFR (CKD) 60.2 (60.0-200.0); Albumin 4.1 g/dL (3.8-4.9); Albumin/Globulin Ratio 1.95 (1.60-3.17); Alkaline Phosphatase 75 U/L (41-126); BUN/Creat Ratio 23.33 Ratio (12.00-20.00); Blood Urea Nitrogen 23.8 mg/dL (9.0-27.0); Calcium 9.5 mg/dL (8.7-10.3); Carbon Dioxide 25.7 mmol/L (20.0-27.5); Chloride 107 mmol/L (96-109); Chol/HDL Ratio 2.92 Ratio; Globulin 2.1 g/dL (1.6-3.3); Glucose 96 mg/dL (70-110); Non-African American GFR(CKD) 51.9 (60.0-200.0); Potassium 5.1 mmol/L (3.5-5.5); Sodium 144 mmol/L (135-145); Total Protein 6.1 g/dL (6.2-8.2)
[2022-10-16 17:29] LABS: INR 2.38 (0.90-1.11)
[2022-10-16 22:16] LABS: Microalbumin Creatinine Ratio <30 mg/g Creat (0-30)
== END | disposition home or self-care (01) ==
LOC: LABWHC1 08:13
PROVIDERS: ATTEND Family Medicine
DX: I10 Essential (primary) hypertension (principal); E11.9 Type 2 diabetes mellitus without complications; E03.9 Hypothyroidism, unspecified; E78.5 Hyperlipidemia, unspecified
CPT/HCPCS: 36415; 80053; 80061; 82043; 82570; 83036; 84439; 84443; 85027; 85610

== ENCOUNTER → 2023-05-14 | Outpatient (CLI) | payer MEDICARE ==
[2023-05-14 10:03] LABS: INR 2.7 (<1.2); Prothrombin Time 26.1 sec (9.0-12.0)
[2023-05-14 17:13] LABS: HCT 37.8 % (37.2-46.3); HGB 12.2 d/dL (12.0-15.0); MCH 31.2 pg (27.0-32.0); MCHC 32.3 d/dL (32.0-37.0); MCV 96.7 FL (80.0-97.0); Mean Platelet Volume 9.9 FL (9.5-12.2); NRBC Per 100 WBC 0 X 10*3/uL (0.00-0.01); Platelet Count 238 X 10*3/uL (140-440); RBC 3.91 X 10*6/uL (4.10-5.20); RDW 13.5 % (11.5-14.5); WBC 4.35 X 10*3/uL (4.50-10.00)
[2023-05-14 18:04] LABS: Microalbumin Creatinine Ratio <12 mg/g Cr (0-30); Urine Creatinine 99.9 mg/dL (28.0-217.0)
[2023-05-14 20:33] LABS: ALT 19 U/L (8-44); AST 18 U/L (13-35); Albumin 4.2 d/dL (3.8-4.9); Albumin/Globulin Ratio 1.83 Ratio (1.60-3.17); Alkaline Phosphatase 73 U/L (41-126); BUN/Creat Ratio 21.08 Ratio (12.00-20.00); Blood Urea Nitrogen 25.3 mg/dL (9.0-27.0); Calcium 9.4 mg/dL (8.7-10.3); Carbon Dioxide 24.4 mmol/L (21.6-31.8); Chloride 107 mmol/L (96-109); Chol/HDL Ratio 3.19 Ratio; Globulin 2.3 d/dL (1.6-3.3); Glucose 104 mg/dL (70-110); Potassium 4.9 mmol/L (3.5-5.5); Sodium 143 mmol/L (135-145); Total Bilirubin 0.4 mg/dL (0.3-1.2); Total Protein 6.5 d/dL (6.2-8.2)
== END | disposition home or self-care (01) ==
LOC: LABWHC1 08:11
PROVIDERS: ATTEND Family Medicine
DX: I10 Essential (primary) hypertension (principal); E11.9 Type 2 diabetes mellitus without complications; E78.2 Mixed hyperlipidemia; G47.33 Obstructive sleep apnea (adult) (pediatric)
CPT/HCPCS: 36415; 80053; 80061; 82043; 82570; 83036; 84439; 84443; 85027; 85610

== ENCOUNTER → 2023-09-03 | Outpatient (CLI) | payer MEDICARE ==
--- NOTE | 2023-09-04 09:17 | MM ---
Reason for Exam: Screening (asymptomatic). Last mammogram was performed 3 year(s) and 9 month(s) ago. Patient History: Menarche at age 16. First Full-Term at age 22. Hysterectomy at age 37. Postmenopausal. Risk Values: Andreina 5 year model risk: 1.3%. NCI Lifetime model risk: 1.9%. Prior Study Comparison: 05/01/2016 Bilateral Screening Mammogram, [facility]. 07/16/2017 Bilateral Screening Mammogram, [facility]. 11/27/2019 Bilateral Screening Mammogram, [facility]. Tissue Density: There are scattered fibroglandular densities. Findings: Analyzed By CAD. There is no suspicious group of microcalcifications or new suspicious mass in either breast. Benign calcifications within both breasts. Overall Assessment: Benign, BI-RAD 2 Management: Screening Mammogram of both breasts in 1 year. A clinical breast exam by your physician is recommended on an annual basis and results should be correlated with mammographic findings. Note on Andreina scores and lifetime risk: 1. A Andreina score greater than 3% is considered moderate risk. If this is the case, consider specialist referral to assess eligibility for a risk reducing agent. If overall lifetime risk for the development of breast cancer is 20% or higher, the patient may qualify for future screening with alternating mammogram and breast MRI. Electronically signed and approved by: Orlando Bey D.O.
== END | disposition home or self-care (01) ==
LOC: RADMAMWWP 14:19
PROVIDERS: ATTEND Family Medicine
DX: Z12.31 Encounter for screening mammogram for malignant neoplasm of breast (principal); Z78.0 Asymptomatic menopausal state
CPT/HCPCS: 77063; 77067

== ENCOUNTER → 2023-11-20 | Outpatient (CLI) | payer MEDICARE ==
[2023-11-20 15:25] LABS: ALT 18 U/L (8-44); AST 15 U/L (13-35); Albumin 4.1 g/dL (3.8-4.9); Albumin/Globulin Ratio 1.78 Ratio (1.60-3.17); Alkaline Phosphatase 80 U/L (41-126); Blood Urea Nitrogen 25.8 mg/dL (9.0-27.0); Calcium 9.4 mg/dL (8.7-10.3); Carbon Dioxide 26.7 mmol/L (21.6-31.8); Chloride 105 mmol/L (96-109); Chol/HDL Ratio 3.36 Ratio; Globulin 2.3 g/dL (1.6-3.3); Glucose 97 mg/dL (70-110); LDL Cholesterol,Calculated 87.1 mg/dL (0.0-131.0); Potassium 4.9 mmol/L (3.5-5.5); Sodium 143 mmol/L (135-145); T4, Free (Free Thyroxine) 1.01 ng/dL (0.80-1.80); Total Bilirubin 0.4 mg/dL (0.3-1.2); Total Protein 6.4 g/dL (6.2-8.2)
[2023-11-20 15:30] LABS: HCT 37.7 % (37.2-46.3); HGB 12.5 g/dL (12.0-15.0); MCH 31.5 pg (27.0-32.0); MCHC 33.2 g/dL (32.0-37.0); Mean Platelet Volume 9.6 FL (9.5-12.2); NRBC Per 100 WBC 0 X 10*3/uL (0.00-0.01); Platelet Count 246 X 10*3/uL (140-440); RBC 3.97 X 10*6/uL (4.10-5.20); RDW 13.3 % (11.5-14.5); WBC 4.86 X 10*3/uL (4.50-10.00)
[2023-11-20 19:27] LABS: INR 3.28 sec (0.93-1.11); Prothrombin Time 32.8 sec (9.9-11.9)
[2023-11-20 21:14] LABS: Microalbumin Creatinine Ratio <11 mg/g Cr (0-30)
== END | disposition home or self-care (01) ==
LOC: LABWHC1 08:22
PROVIDERS: ATTEND Family Medicine
DX: I10 Essential (primary) hypertension (principal); Z16.24 Resistance to multiple antibiotics
CPT/HCPCS: 36415; 80053; 80061; 82043; 82306; 82570; 83036; 84439; 84443; 85027; 85610

== ENCOUNTER → 2024-05-25 | Outpatient (CLI) | payer MEDICARE ==
[2024-05-25 17:26] LABS: ALT 31 U/L (8-44); AST 23 U/L (13-35); Albumin 4.2 g/dL (3.8-4.9); Albumin/Globulin Ratio 1.91 Ratio (1.60-3.17); Alkaline Phosphatase 81 U/L (41-126); Blood Urea Nitrogen 21.6 mg/dL (9.0-27.0); Calcium 9.2 mg/dL (8.7-10.3); Carbon Dioxide 24.1 mmol/L (21.6-31.8); Chloride 108 mmol/L (96-109); Chol/HDL Ratio 3.21 Ratio; Globulin 2.2 g/dL (1.6-3.3); Glucose 129 mg/dL (70-110); LDL Cholesterol,Calculated 84.4 mg/dL (0.0-131.0); Potassium 4.9 mmol/L (3.5-5.5); Sodium 143 mmol/L (135-145); T4, Free (Free Thyroxine) 1.06 ng/dL (0.80-1.80); Total Bilirubin 0.4 mg/dL (0.3-1.2); Total Protein 6.4 g/dL (6.2-8.2)
[2024-05-25 19:16] LABS: Urine Creatinine 84.7 mg/dL (28.0-217.0)
== END | disposition home or self-care (01) ==
LOC: LABWHC1 08:36
PROVIDERS: ATTEND Family Medicine
DX: I10 Essential (primary) hypertension (principal); E11.9 Type 2 diabetes mellitus without complications; E78.5 Hyperlipidemia, unspecified; E03.9 Hypothyroidism, unspecified; Z79.899 Other long term (current) drug therapy
CPT/HCPCS: 36415; 80053; 80061; 82043; 82570; 83036; 84439; 84443

== ENCOUNTER → 2024-06-25 | Outpatient (CLI) | payer MEDICARE ==
[~2024-06-25] MED LIST: DOBUTamine DRIP for NUC MED 500 MG/250 ML BAG IV ONE
--- NOTE | 2024-07-17 11:38 | CA ---
Dobutamine Stress Echocardiogram Report Viv Dunaway Age: 84 Gender: F : 1940 Exam Date: 06/25/2024 10:27 Exam Location: [facility] Ordering Physician: Referring Physician: KARLEE, Rod Greaser: Flaco Giang Technologist: Ht (in): 64 Wt (lb): 235 Procedure CPT: Indication: ICD-9 Codes: Rhythm: Patient History: Shortness of breath, diabetes and hypertension Cardiac Medications: Medications in past 24 hours: Contrast: Total Dose (mL): Stress Results Protocol: Dobutamine Peak Dose (???g/kg/min): 20 Duration (min:sec): Atropine:(mg) Target HR: 117 Double Product: 04435 Resting HR: 62 Resting BP: 152 / 71 Peak HR: 181 Peak BP: 201 / 51 Max Predicted HR: 138 131 % Max Predicted HR Stress Summary: BP Response: Reason for Termination: Exceeded target heart rate (85% max predicted) Cardiac Symptoms: No symptoms ECG Analysis Resting EKG: Normal sinus rhythm, normal ECG Stress EKG: No abnormal ST/T wave changes with exercise Arrhythmia: Short runs of SVT, Occasional PVCs Echo Analysis Base Echo Analysis: Normal resting echocardiogram. Low Echo Anaylsis: Normal wall motion and thickening Peak Echo Analysis: Normal wall motion augmentation Recovery Echo: No segmental wall motion abnormalities MEASUREMENTS (Male/Female) Normal Values DOPPLER AV Peak Velocity 299.8 cm/s AV Peak Gradient 36.0 mmHg AV Mean Velocity 218.0 cm/s AV Mean Gradient 21.5 mmHg AV Velocity Time Integral 71.0 cm CONCLUSIONS Normal Electrocardiographic response to dobutamine infusion with short burst nonsustained SVT Normal Dobutamine stress echocardiogram with no evidence of stress-induced ischemia. Evidence of moderate aortic stenosis with a peak gradient of 57 mmHg and a mean of [address] Skyler Guadarrama MD (Electronically Signed) Final Date: 25 June 2024 12:02
== END | disposition home or self-care (01) ==
LOC: RADNMMAIN 09:00
PROVIDERS: ATTEND Internal Medicine Interventional Cardiology
DX: I35.0 Nonrheumatic aortic (valve) stenosis (principal); I47.10 Supraventricular tachycardia, unspecified; E11.9 Type 2 diabetes mellitus without complications; I10 Essential (primary) hypertension; R06.02 Shortness of breath
CPT/HCPCS: 93351; J1250

== ENCOUNTER → 2024-11-24 | Outpatient (CLI) | payer MEDICARE ==
[2024-11-24 18:25] LABS: Basophils # (A) 0.02 X 10*3/uL (0.00-0.10); Basophils % (A) 0.5 %; Eosinophils # (A) 0.05 X 10*3/uL (0.04-0.35); Eosinophils % (A) 1.2 %; HCT 28.6 % (37.2-46.3); HGB 9.2 g/dL (12.0-15.0); Lymphocytes # (A) 0.33 X 10*3/uL (0.90-5.00); Lymphocytes % (A) 7.8 %; MCH 31.2 pg (27.0-32.0); MCHC 32.2 g/dL (32.0-37.0); MCV 96.9 FL (80.0-97.0); Mean Platelet Volume 9.9 FL (9.5-12.2); Monocytes # (A) 0.42 X 10*3/uL (0.20-1.00); NRBC Per 100 WBC 0 X 10*3/uL (0.00-0.01); Neutrophils # (A) 3.39 X 10*3/uL (1.80-7.70); Neutrophils % (A) 80.3 %; Platelet Count 119 X 10*3/uL (140-440); RBC 2.95 X 10*6/uL (4.10-5.20); RDW 14.9 % (11.5-14.5); WBC 4.22 X 10*3/uL (4.50-10.00)
[2024-11-24 20:31] LABS: ALT 12 U/L (8-44); AST 23 U/L (13-35); Albumin 3.3 g/dL (3.8-4.9); Albumin/Globulin Ratio 1.57 Ratio (1.60-3.17); Alkaline Phosphatase 60 U/L (41-126); BUN/Creat Ratio 23.14 Ratio (12.00-20.00); Blood Urea Nitrogen 32.4 mg/dL (9.0-27.0); Calcium 8.7 mg/dL (8.7-10.3); Carbon Dioxide 22.4 mmol/L (21.6-31.8); Chloride 102 mmol/L (96-109); Chol/HDL Ratio 3.71 Ratio; Globulin 2.1 g/dL (1.6-3.3); Glucose 92 mg/dL (70-110); LDL Cholesterol,Calculated 80.1 mg/dL (0.0-131.0); Potassium 4.6 mmol/L (3.5-5.5); Sodium 138 mmol/L (135-145); T4, Free (Free Thyroxine) 0.99 ng/dL (0.80-1.80); Total Bilirubin 0.9 mg/dL (0.3-1.2); Total Protein 5.4 g/dL (6.2-8.2)
== END | disposition home or self-care (01) ==
LOC: LABWHC1 07:59
PROVIDERS: ATTEND Family Medicine
DX: I10 Essential (primary) hypertension (principal); E11.9 Type 2 diabetes mellitus without complications; E03.9 Hypothyroidism, unspecified; Z79.899 Other long term (current) drug therapy
CPT/HCPCS: 36415; 80053; 80061; 82306; 83036; 84439; 84443; 85025

== ENCOUNTER → 2025-05-26 | Outpatient (CLI) | payer MEDICARE ==
[2025-05-26 19:59] LABS: HCT 34.4 % (37.2-46.3); HGB 11.4 g/dL (12.0-15.0); MCH 31.9 pg (27.0-32.0); MCHC 33.1 g/dL (32.0-37.0); MCV 96.4 FL (80.0-97.0); NRBC Per 100 WBC 0 X 10*3/uL (0.00-0.01); Platelet Count 260 X 10*3/uL (140-440); RBC 3.57 X 10*6/uL (4.10-5.20); RDW 14.0 % (11.5-14.5); WBC 6.69 X 10*3/uL (4.50-10.00)
== END | disposition home or self-care (01) ==
LOC: LABWHC1 14:01
PROVIDERS: ATTEND Family Medicine
DX: D64.9 Anemia, unspecified (principal)
CPT/HCPCS: 36415; 85027